=== PATIENT | male | born 1955 | race Caucasian/White ===

== ENCOUNTER 2017-03-11 10:55 | Inpatient (IN) | payer OTHER, MEDICARE ==
[~2017-03-11] VITALS: Ht 182.9 cm; Wt 76.3 kg
[2017-03-11] VITALS (28 sets, daily range): BP systolic 81–144; BP diastolic 36–76; PULSE 41–85; RESP 14–25; TEMP 91.6–98.4; O2SAT 8–100
[~2017-03-11 10:55] MED LIST: CARV12.5 PO; DIGO0.25 PO; HYDR-3580 PO; LISI40TA PO; [UNRECOGNIZED DRUG - CODE] XX
[2017-03-11] MEDS ORDERED: PROPOFOL 1000 MG/100 ML INJ 100 ML ONE (10:59)
[2017-03-11] MEDS ORDERED: SODIUM CHLORIDE 0.9% FLUSH 10 ML FLUSH IVF PRN ×2 (11:15)
[2017-03-11] MEDS ORDERED: ETOMIDATE 20 MG/10 ML VIAL IVP ONE (11:15)
[2017-03-11] MEDS ORDERED: SUCCINYLCHOLINE CHLORIDE 200 MG/10 ML VIAL IVP ONE (11:15)
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
[2017-03-11 11:30] LABS: AUTOMATED NEUTROPHIL # 3.5 TH/MM3 (1.8-7.7); BASOPHIL # 0.1 TH/MM3 (0-0.2); BASOPHIL % 0.9 % (0.0-2.0); EOSINOPHIL # 0.1 TH/MM3 (0-0.4); EOSINOPHIL % 1.3 % (0.0-4.0); HEMATOCRIT 50.7 % (39.0-51.0); HEMO FLAGS DIFF FINAL; LYMPH % 46.8 % (9.0-44.0); LYMPHOCYTE # 3.5 TH/MM3 (1.0-4.8); MEAN CELL VOLUME 96.1 FL (80.0-100.0); MEAN CORPUSCULAR HEMOGLOBIN 31.8 PG (27.0-34.0); MEAN CORPUSCULAR HGB CONC 33.1 % (32.0-36.0); PLATELET COUNT 199 TH/MM3 (150-450); RED BLOOD COUNT 5.27 MIL/MM3 (4.50-5.90); RED CELL DISTRIBUTION WIDTH 15.2 % (11.6-17.2); WHITE BLOOD COUNT 7.4 TH/MM3 (4.0-11.0)
[2017-03-11 11:34] LABS: BACTERIA, URINE RARE /hpf; BLOOD, URINE NEG (NEG); COMMENT (UR) CATH-CULTURE IND; CULTURE IF INDICATED CATH CULTURE IND; GLUCOSE,URINE NEG (NEG); HYALINE CAST, URINE 1 /lpf (RARE); KETONE, URINE NEG (NEG); MUCUS URINE FEW /lpf (OCC); NITRITE,URINE NEG (NEG); PH, URINE 5.5 (5.0-8.5); SQUAMOUS EPITHELIAL CELL URINE 1 /hpf (0-5); URINE COLOR YELLOW (YELLW/STRAW)
[2017-03-11 11:41] LABS: APTT (PATIENT) 31.6 SEC (24.3-30.1); PROTHROMBIN TIME - PATIENT 11.5 SEC (9.8-11.6)
[2017-03-11 11:44] LABS: AMPHETAMINE, URINE NEG (NEG)
[2017-03-11 11:45] LABS: BARBITURATES, URINE NEG (NEG); COCAINE, URINE NEG (NEG)
[2017-03-11] MEDS ORDERED: EPINEPHrine 2 MG/D5W 250 ML IV SCH ×2 (11:45)
[2017-03-11] MEDS ORDERED: NOREPINEPHRINE 4 MG/4 ML AMP ONE (11:48)
--- NOTE | 2017-03-11 11:54 | RADRPT ---
EXAM DATE/TIME: 03/11/2017 11:10 [facility] COMPARISON: CHEST SINGLE AP, June 30, 2015, 3:59. INDICATIONS : Post Intubation MEDICAL HISTORY : Unavailable SURGICAL HISTORY : Unavailable ENCOUNTER: Initial ACUITY: 1 day PAIN SCORE: Non-responsive. LOCATION: Bilateral chest FINDINGS: NG tube is present with tip in the stomach. ET tube is present with tip overlapping approximately 3 c m above the catracho. There is haziness of both lungs not present previously without focal consolidatio n. Heart and mediastinum are unremarkable for technique. CONCLUSION: Interval development of haziness of both lungs not present previously may represent pulmonary edema. Jacqueline Preston MD on March 11, 2017 at 11:51 Board Certified Radiologist. This report was verified electronically.
[2017-03-11 12:00] LABS: ALKALINE PHOSPHATASE 86 U/L (45-117); ALT (GPT) 164 U/L (12-78); ANION GAP 19 MEQ/L (5-15); AST (GOT) 179 U/L (15-37); BICARBONATE 14.9 MEQ/L (21.0-32.0); BLOOD UREA NITROGEN 11 MG/DL (7-18); CHLORIDE 105 MEQ/L (98-107); CREATINE KINASE 107 U/L (39-308); GLOMERULAR FILTRATION RATE 50 ML/MIN (>89); SODIUM (NA) 139 MEQ/L (136-145); TOTAL BILIRUBIN ADULT 0.8 MG/DL (0.2-1.0)
--- NOTE | 2017-03-11 12:10 | PD.PROCEDR ---
Central Line Procedure REASON FOR PROCEDURE Central venous access PROCEDURE PERFORMED Central line placement: Right internal Jugular CONSENT Informed consent for procedure was not obtained deemed emergent. ANESTHESIA Local injection of 1% Lidocaine DESCRIPTION OF THE PROCEDURE The patient was placed in supine, mild Trendelenburg position. The area was exposed and cleansed with ChloraPrep, times two. Large sterile drape was used to cover the patient, with the site exposed, under sterile conditions including cap, face mask, sterile gown, and sterile gloves. On single attempt, the introducer needle was inserted with negative pressure in syringe and venous flash was obtained. The guide wire was then advanced without any restriction and the needle was removed. The dilator was used without any complications. Using Seldinger technique the 7 Romanian catheter was advanced over the guide wire to a depth of 18 centimeters. The guide wire was removed. All ports were aspirated with dark venous blood return and flushed easily with sterile saline. All ports were capped. Antibiotic disc was placed around central line at puncture site. The central line was secured to the skin with two interrupted 2.0 silk sutures. The area was bandaged with sterile see-through central line bandage. RADIOLOGICAL DATA Ultrasound guidance was used to locate right internal jugular. Doppler/color flow was used to confirm venous flow. COMPLICATIONS: No apparent complications ESTIMATED BLOOD LOSS: Less than 1 cc. Kelley Spring MD Mar 11, 2017 12:10
--- NOTE | 2017-03-11 12:12 | PD.PROCEDR ---
Procedure Note Procedure Procedure: Arterial Line Placement Right radial arterial line Diagnosis: Cardiac arrest Indications: None Consent: Emergent Description of the Procedure: The right wrist was prepped and draped sterilely. 1% lidocaine was used for local anesthesia. The pulse was located and a needle was advanced into the artery. A 20 gauge, 1.34cm catheter was advanced into the artery using a modified Seldinger technique. The catheter was sutured to the skin and a sterile dressing was applied. The catheter was connected to a pressure transducer and an arterial waveform was noted. There were no immediate complications noted. There was minimal EBL. I personally performed the procedure. Kelley Spring MD Mar 11, 2017 12:12
[2017-03-11] MEDS: SODIUM CHLOR 0.9% 1000 ML INJ 1,000 ML IV SCH ×4 (12:13→20:02)
[2017-03-11] MEDS ORDERED: BISACODYL 10 MG SUPP RECTAL PRN (12:15)
[2017-03-11] MEDS ORDERED: POTASSIUM CHLOR 40 MEQ PREMIX 100 ML IV PRN (12:15)
[2017-03-11] MEDS ORDERED: SODIUM PHOSPHATE INJ 30 MMOL in SODIUM CHLOR 0.9% 250 ML INJ 240 ML IV PRN (12:15)
[2017-03-11] MEDS ORDERED: MAGNESIUM SULFATE INJ 2 GM in SODIUM CHLORIDE 0.9% INJ 96 ML IV PRN (12:15)
[2017-03-11] MEDS ORDERED: MISCELLANEOUS NURSING INFORMATION XX SCH (12:15)
[2017-03-11] MEDS ORDERED: POTASSIUM PHOSPHATE MONOBASIC 500 MG TAB PO PRN (12:15)
[2017-03-11] MEDS ORDERED: POTASSIUM CHLOR 20 MEQ PREMIX 100 ML IV PRN (12:15)
[2017-03-11] MEDS ORDERED: SODIUM CHLORIDE 0.9% FLUSH 10 ML FLUSH IV FLUSH PRN ×2 (12:15→16:45)
[2017-03-11] MEDS ORDERED: RESP: ALBUTEROL 2.5 MG/IPRATROPIUM 0.5 MG NEB (PRN) INH (12:15)
[2017-03-11] MEDS ORDERED: POTASSIUM PHOSPHATE INJ 30 MMOL in SODIUM CHLOR 0.9% 250 ML INJ 250 ML IV PRN (12:15)
[2017-03-11] MEDS ORDERED: MAGNESIUM OXIDE 400 MG TAB PO PRN (12:15)
[2017-03-11] MEDS ORDERED: SENNOSIDES SYRUP 8.8 MG/5 ML CUP G-TUBE PRN (12:15)
[2017-03-11] MEDS ORDERED: MAGNESIUM SULFATE INJ 4 GM in SODIUM CHLORIDE 0.9% INJ 92 ML IV PRN (12:15)
[2017-03-11] MEDS ORDERED: ACETAMINOPHEN 325 MG TAB PO PRN (12:15)
[2017-03-11] MEDS ORDERED: CHLORHEXIDINE GLUCONATE 2 % 1 PACK (2 CLOTHS) TOP PRN (12:15)
[2017-03-11] MEDS: DOCUSATE SODIUM 100 MG/10 ML UDC G-TUBE SCH ×2 (12:15→20:00)
[2017-03-11] MEDS ORDERED: POTASSIUM CHLORIDE 25 MEQ EFFERVESCENT TAB PO PRN (12:15)
[2017-03-11] MEDS ORDERED: POTASSIUM PHOSPHATE MONOBASIC 500 MG TAB PO/TUBE PRN (12:15)
--- NOTE | 2017-03-11 12:24 | RADRPT ---
EXAM DATE/TIME: 03/11/2017 11:55 [facility] COMPARISON: CHEST SINGLE AP, March 11, 2017, 11:10. INDICATIONS : Post central line placement, Stemi Alert MEDICAL HISTORY : Unobtainable SURGICAL HISTORY : Unobtainable ENCOUNTER: Subsequent ACUITY: 1 day PAIN SCORE: Non-responsive. LOCATION: Bilateral chest FINDINGS: ET tube, and NG tube have not changed. Right IJ line is present with tip overlapping the expected reg ion of the SVC. No definite pneumothorax is seen for technique. There is worsening airspace process i n the lungs since the prior examination bilaterally are worse on the right. CONCLUSION: Line placed and no pneumothorax, however air space process has progressed. Jacqueline Preston MD on March 11, 2017 at 12:21 Board Certified Radiologist. This report was verified electronically.
[2017-03-11] MEDS ORDERED: HEPARIN-NS/PF INJ 500 ML ONE (12:25)
[2017-03-11] MEDS ORDERED: HEPARIN SODIUM - IV 10,000 UNITS/10 ML VIAL ONE (12:27)
[2017-03-11] MEDS ORDERED: DEXTROSE 50% IN WATER 50 ML VIAL(D50) IV PUSH PRN (12:30)
[2017-03-11] MEDS ORDERED: GLUCAGON 1 MG/ML VIAL OTHER PRN (12:30)
[2017-03-11] MEDS ORDERED: TERBUTALINE INJ 1 MG/ML AMP SQ PRN (12:30)
[2017-03-11 12:42] LABS: BLOOD GAS BASE EXCESS -10.3 mmol/L (-2-2); BLOOD GAS HCO3 16 mmol/L (22-26); BLOOD GAS METHEMOGLOBIN 0.4 % (0-2); BLOOD GAS O2 HGB SATURATION 89 % (90-100); BLOOD GAS OXYGEN CONTENT 21.2 Vol % (12.0-20.0); BLOOD GAS PCO2 42 mmHg (38-42); BLOOD GAS PO2 118 mmHG (61-120); BLOOD GAS TOTAL HGB 16.9 G/DL (12.0-16.0); TEMP CORR TO 98.6
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
[2017-03-11 12:43] LABS: CRITICAL VALUE YES; OXYGEN DEVICE VENTILATOR
[2017-03-11 12:44] LABS: DRAW SITE LT RADIAL; FIO2 100 %; NUMBER OF ARTERIAL PUNCTURES 1; STAT YES; ULNAR PULSE PRESENT
[2017-03-11] MEDS: ARTIFICIAL TEARS OPTH SOLN 15 ML BTL EACH EYE SCH ×2 (13:00→18:00)
--- NOTE | 2017-03-11 13:08 | RADRPT ---
EXAM DATE/TIME: 03/11/2017 12:40 [facility] COMPARISON: No previous studies available for comparison. INDICATIONS : Unresponsive; post cardiac arrest. RADIATION DOSE: 49.19 CTDIvol (mGy) MEDICAL HISTORY : Hypertension. Cardiovascular disease Stroke. SURGICAL HISTORY : None. ENCOUNTER: Initial ACUITY: 1 day PAIN SCALE: Non-responsive LOCATION: cranial TECHNIQUE: Multiple contiguous axial images were obtained of the head. Using automated exposure control and adj ustment of the mA and/or kV according to patient size, radiation dose was kept as low as reasonably a chievable to obtain optimal diagnostic quality images. FINDINGS: There is no evidence for intracranial hemorrhage, mass effect, mass lesions, edema, or extra-axial fl uid collections. The visualized bony structures appear intact. The ventricles are normal size for t he patient's age. There are no signs of acute infarction for technique. There is encephalomalacia in the right posterior temporal occipital lobe probably due to old infarction. Slight periventricular w angelo matter changes are seen nonspecific mostly consistent with chronic small vessel ischemic changes . CONCLUSION: Chronic changes without any significant hemorrhage or mass effect. Jacqueline Preston MD on March 11, 2017 at 13:04 Board Certified Radiologist. This report was verified electronically.
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
[2017-03-11] MEDS ORDERED: FUROSEMIDE 20 MG/2 ML VIAL IV PUSH ONE (13:45)
--- NOTE | 2017-03-11 13:55 | MB ---
cc: SILVANO IBARRA M.D. DATE OF CONSULTATION: 03/11/2017. REASON FOR CONSULTATION: Emergency cardiac catheterization. HISTORY OF PRESENT ILLNESS: History is obtained from the patient's family and from Dr. Perry Palomares. The patient is currently intubated and sedated. He is a 61-year-old white male with a history of hypertension and CVA about five years ago who was brought to the hospital after a cardiac arrest. The patient's states he was at home in the driveway when he suddenly lost consciousness. Emergency services found him to be in ventricular fibrillation and administered four shocks with yarsani of a regular rhythm. For a brief time, he was able to state his name but he then shortly thereafter developed severe respiratory insufficiency necessitating intubation and placement on mechanical ventilation. The patient's states he has been acting "funny" all week although without any definite complaints of shortness of breath or chest pain. There is no history of syncope, dizziness, pedal edema. PAST MEDICAL HISTORY: As above. No other details currently available. MEDICATIONS AT HOME: None. ALLERGIES: Unknown FAMILY HISTORY: Noncontributory. SOCIAL HISTORY: The patient smokes about a pack of cigarettes per day. There is no history of alcohol abuse. REVIEW OF SYSTEMS: Currently unobtainable. PHYSICAL EXAMINATION: VITAL SIGNS: Blood pressure 94/53 with a pulse of 70, respirations 20. GENERAL: In general, he is a well-developed, well-nourished white male currently intubated and sedated. HEAD, EYES, EARS, NOSE, THROAT: On HEENT examination, jugular venous pressure is hard to assess but appears to be normal. Carotid pulses are 2+ bilaterally and without bruits. CHEST: Examination of the chest reveals clear lung rodriguez anteriorly. CARDIAC: On cardiac examination, he has a regular rhythm and rate without S3, S4 or murmur. ABDOMEN: On abdominal examination he has a soft abdomen. Bowel sounds are present. There is no definite hepatosplenomegaly. EXTREMITIES: Examination of extremities reveals no clubbing, cyanosis or edema. Peripheral pulses are normal. EKGS: The EKG shows possible accelerated atrioventricular rhythm, nonspecific intraventricular conduction delay, possible anterior infarct, age undetermined. LABORATORY DATA: Laboratory data includes normal CBC. Potassium 4.0, BUN 11, creatinine 1.44, AST 179, ALT 164. CK 107, troponin 0.14. INR 1.0. Negative toxicology screen. IMPRESSION: Ventricular fibrillation arrest out in the field in this 61-year-old white male with a history of hypertension and CVA about 5 years ago. I have been asked to consider the patient for emergency cardiac catheterization. Most likely he has sustained an acute coronary event. EKG is overall nondiagnostic due to a nonspecific intraventricular conduction delay. Initial troponin level is slightly abnormal. He is currently hypotensive necessitating pressor support. In light of his hemodynamic instability, abnormal cardiac enzymes, clinical presentation with ventricular fibrillation arrest, I would agree with the need for emergency cardiac catheterization and possible percutaneous coronary intervention. The nature of these procedures and potential risks have been outlined to the patient's family. They wish to proceed. RECOMMENDATIONS: Emergency cardiac catheterization a.s.a.p. MD PAPITO Kearns/LETITIA /1:32 PM /1:48 PM RASHEEDA
[2017-03-11] MEDS ORDERED: NOREPINEPHRINE-DEXTROSE DRIP 250 ML IV SCH (14:00)
[2017-03-11] MEDS ORDERED: TIROFIBAN INFUSION INJ 250 ML IV ONE (14:06)
[2017-03-11] MEDS ORDERED: EPINEPHrine (1:1000) INJ 2 MG in DEXTROSE 5% IN WATER INJ 248 ML IV SCH ×2 (14:30)
[2017-03-11] MEDS: PROPOFOL 1000 MG/100 ML IV SCH ×2 (14:37→17:58)
[2017-03-11] MEDS ORDERED: TICAGRELOR 90 MG TAB PO ONE (15:08)
[2017-03-11] MEDS ORDERED: MISC INFORMATION XX ONE (15:30)
[2017-03-11] MEDS ORDERED: SODIUM CHLORIDE 0.9% FLUSH 5 ML FLUSH IVF PRN (15:30)
--- NOTE | 2017-03-11 15:57 | EKG ---
Date Performed: 03/11/2017 Time Performed: 11:02:36 PTAGE: 61 years EKG: ATRIAL FIBRILLATION WITH CONTROLLED VENTRICULAR RESPONSE LEFT AXIS DEVIATION RIGHT BUNDLE B RANCH BLOCK CANNOT EXCLUDE ANTERIOR MYOCARDIAL INFARCTION OF UNDETERMINED AGE Since PREVIOUS TRACING , there is a rhythm change from Sinus rhythm to atrial fibrillation. There is more of a right bundle branch block pattern now of the QRS. Clinica l correlation recommended. PREVIOUS TRACIN06/30/2015 04.07 DOCTOR: Antonio Alva Interpretating Date/Time 03/13/2017 07:17:14
[2017-03-11] MEDS: INSULIN NovoLIN REGULAR SUPPLEMENTAL SCALE SQ SCH ×2 (16:00→20:01)
--- NOTE | 2017-03-11 16:04 | MA ---
cc: YOVANY IBARRA DATE: 03/11/2017 PROCEDURE Placement of a Quattro cooling catheter. PROCEDURE NOTES The patient had sustained a witnessed ventricular fibrillation arrest out in the field earlier today. It is decided to place a cooling catheter. Central venous access was obtained via the right femoral vein and a tract made using a dialator. Over the guidewire the Quattro cooling catheter was advanced. It was secured into place using 2-0 silk ties. CONCLUSION Successful placement of a Quattro cooling catheter via the right femoral vein. MD PAPITO Kearns/NAILA /3:19 PM /4:01 PM MTDD
--- NOTE | 2017-03-11 16:04 | MA ---
cc: FREDYOVANY DATE: 03/11/2017 PROCEDURE Difficult selective coronary angiography, angioplasty of the third diagonal, angioplasty and stent of the proximal LAD. PROCEDURE NOTES The patient was brought to the Cardiac Catheterization Laboratory under emergent conditions after sustaining a ventricular fibrillation arrest out in the field. The right groin was prepped and draped as per policy and anesthetized with 1% lidocaine. Arterial access was obtained via the right femoral artery and a 6-Indian sheath placed. Coronary arteriography was performed using 6-Indian Cesar left 5.0 and right progressive catheters. Left ventriculography was not done. The aortic valve was crossed briefly with the progressive right catheter demonstrating no transvalvular aortic gradient. Percutaneous coronary intervention was done as described below. There were no apparent immediate complications. HEMODYNAMIC DATA Aorta 116/68 with a mean of 88. Left ventricle 120 with an end diastolic pressure of 18. CORONARY ARTERIOGRAPHY The left main is a large-caliber vessel with 10% distal stenosis. The LAD is a large vessel giving rise to three diagonals, all arising from the proximal LAD. The first diagonal has minimal luminal irregularities. The second diagonal has up to 30% proximal stenosis. The third diagonal is diffusely diseased. There is up to 70% very proximal stenosis and at least 60% stenosis at its ostium. The midportion of the third diagonal has 50-60% stenosis. The LAD proximally, right after the takeoff the third diagonal, has 85% tubular stenosis. The mid to distal LAD is normal. The left circumflex is a medium-sized vessel giving rise to a large branching obtuse marginal. There are minimal luminal irregularities in the proximal left circumflex and in the proximal obtuse marginal. The right coronary artery is a very large dominant vessel with up to 40% proximal stenosis. The mid to distal vessel has minimal luminal irregularities. LEFT VENTRICULOGRAPHY Not done. PERCUTANEOUS CORONARY INTERVENTION DESCRIPTION Aggrastat was started as per protocol. Adequate heparin was given during the procedure to achieve an ACT greater than 250 seconds. Using a 6-Indian XB 4.5 guiding catheter the ostium of the left main was re-engaged. Using a 0.014 [place] guidewire the proximal LAD disease was crossed without difficulty and the tip of the wire positioned distally. A number of pre-dilations were done using a 3.0-mm Euphora balloon catheter. At this point there is a very small non-flow limiting dissection at the lesion. It was decided to try to treat the third diagonal disease near the ostium and then to eventually place an LAD stent overlapping the origin of the third diagonal. A [place] wire was positioned in the third diagonal without difficulty. Multiple balloon inflations were done in the diagonal initially using a 2.25-mm Euphora balloon catheter and then eventually a noncompliant 2.5-mm Euphora. We attempted to advance both a 2.5-mm Resolute and 2.5 mm Promus stent into the very proximal portion of the diagonal without success. There appears to be focal calcification near the ostium of the diagonal preventing passage of the stent. We also tried peyman wiring using a Balance Middle Weight guidewire, again without success. Additional balloon inflations were done at the ostium of the third diagonal using a fresh 2.5 mm noncompliant Euphora. We were once again unable to advance a stent into the diagonal. At this point we decided to stent across the origin of the third diagonal encompassing the proximal LAD using a 3.5 x 22-mm Resolute stent which was deployed at 12 atmospheres for 30 seconds. Final angiography shows reduction of the proximal LAD lesion to 0% residual with no evidence for dissection or distal embolization. The ostial to proximal portion of the third diagonal has persistent disease up to 60% severity. There were no apparent immediate complications. The patient was intubated and sedated throughout the case. CONCLUSIONS 1. Severe proximal LAD and severe ostial to proximal third diagonal disease, now status post stent of the proximal LAD and angioplasty of the third diagonal with unsuccessful stenting of the third diagonal. 2. Mild to moderate proximal right coronary disease. MD PAPITO Kearns/BJIra /3:11 PM /3:38 PM RASHEEDA
[2017-03-11] MEDS: CEFEPIME INJ 2,000 MG in SODIUM CHLORIDE 0.9% INJ 100 ML IV SCH ×2 (16:15→21:15)
[2017-03-11] MEDS: AZITHROMYCIN INJ 250 MG in SODIUM CHLOR 0.9% 250 ML INJ 250 ML IV SCH (16:16)
[2017-03-11 16:25] LABS: INDIRECT BILIRUBIN 0.5 MG/DL (0.0-0.8); MAGNESIUM 2.6 MG/DL (1.5-2.5); TOTAL BILIRUBIN ADULT 0.8 MG/DL (0.2-1.0)
[2017-03-11 16:37] LABS: BLOOD GAS BASE EXCESS -3.3 mmol/L (-2-2); BLOOD GAS CARBOXYHEMOGLOBIN 3.8 % (0-4); BLOOD GAS HCO3 21 mmol/L (22-26); BLOOD GAS METHEMOGLOBIN 0.9 % (0-2); BLOOD GAS O2 HGB SATURATION 94 % (90-100); BLOOD GAS OXYGEN CONTENT 22.4 Vol % (12.0-20.0); BLOOD GAS PCO2 37 mmHg (38-42); BLOOD GAS PO2 137 mmHg (61-120); BLOOD GAS TOTAL HGB 16.7 G/DL (12.0-16.0); CRITICAL VALUE NO; TEMP CORR TO 98.6
[2017-03-11 16:38] LABS: DRAW SITE ART LINE; FIO2 50 %; OXYGEN DEVICE VENTILATOR; STAT NO; VENT SETTINGS A/C14/550/+8PEEP
[2017-03-11] MEDS: RESP: ALBUTEROL 2.5 MG/IPRATROPIUM 0.5 MG NEB (SCH) INH ×2 (16:40→19:22)
[2017-03-11] MEDS: NS 1000 ML IV SCH ×2 (16:45→17:15)
[2017-03-11] MEDS ORDERED: MIDAZOLAM HCL 2 MG/2 ML VIAL IV ONE (16:45)
[2017-03-11] MEDS ORDERED: LORazepam 2 MG/ML VIAL IV PRN (16:45)
[2017-03-11] MEDS ORDERED: Mix all IV Meds in NS IV SCH (16:45)
[2017-03-11] MEDS ORDERED: ARTIFICIAL TEARS OPTH OINT 3.5 APPLIC/3.5 GM TUBO EACH EYE PRN (16:45)
[2017-03-11] MEDS ORDERED: MEPERIDINE HCL 25 MG/ML VIAL IV PUSH PRN (16:45)
[2017-03-11] MEDS ORDERED: CISATRACURIUM BESYLATE 10 MG/5 ML VIAL IV PUSH ONE (16:45)
[2017-03-11] MEDS ORDERED: PROPOFOL 1000 MG/100 ML IV SCH (16:45)
[2017-03-11 16:57] LABS: BASOPHIL % 0.1 % (0.0-2.0); EOSINOPHIL % 0.1 % (0.0-4.0); HEMATOCRIT 48.9 % (39.0-51.0); HEMO FLAGS DIFF FINAL; LYMPH % 4.9 % (9.0-44.0); LYMPHOCYTE # 0.9 TH/MM3 (1.0-4.8); MEAN CELL VOLUME 93.3 FL (80.0-100.0); MEAN CORPUSCULAR HEMOGLOBIN 30.7 PG (27.0-34.0); MEAN CORPUSCULAR HGB CONC 32.9 % (32.0-36.0); MONO % 8.8 % (0.0-8.0); NEUT % 86.1 % (16.0-70.0); PLATELET COUNT 262 TH/MM3 (150-450); RED BLOOD COUNT 5.24 MIL/MM3 (4.50-5.90); RED CELL DISTRIBUTION WIDTH 14.4 % (11.6-17.2); WHITE BLOOD COUNT 18.5 TH/MM3 (4.0-11.0)
[2017-03-11] MEDS ORDERED: NOREPINEPHRINE 4 MG/250 ML NS IV SCH ×2 (17:00)
[2017-03-11] MEDS ORDERED: FENTANYL DRIP IV SCH (17:00)
[2017-03-11 17:02] LABS: BLOOD, URINE SMALL (NEG); GLUCOSE,URINE NEG (NEG); KETONE, URINE TRACE mg/dL (NEG); NITRITE,URINE NEG (NEG); PH, URINE 5.5 (5.0-8.5); SQUAMOUS EPITHELIAL CELL URINE <1 /hpf (0-5); URINE COLOR LIGHT-YELLOW (YELLW/STRAW)
[2017-03-11 17:08] LABS: INTERNATIONAL NORMALIZED RATIO 1.1 RATIO; PROTHROMBIN TIME - PATIENT 12.4 SEC (9.8-11.6)
[2017-03-11 17:09] LABS: AMPHETAMINE, URINE NEG (NEG); BARBITURATES, URINE NEG (NEG); COCAINE, URINE NEG (NEG)
[2017-03-11 17:28] LABS: APTT (PATIENT) 127.9 SEC (24.3-30.1)
[2017-03-11 17:38] LABS: BICARBONATE 22.5 MEQ/L (21.0-32.0); POTASSIUM 4.4 MEQ/L (3.5-5.1)
[2017-03-11] MEDS ORDERED: CISATRACURIUM BESYLATE 20 MG/10 ML VIAL IV PUSH ONE (17:45)
[2017-03-11 17:50] LABS: CALCIUM-PROTEIN CORRECTED 8.1 MG/DL (8.5-10.1)
[2017-03-11] MEDS: MIDAZOLAM 100 MG/ML INJ 100 ML IV SCH ×2 (17:59→23:50)
[2017-03-11] MEDS: CISATRACURIUM 100 MG/NS 250 ML IV SCH ×4 (17:59→23:47)
[2017-03-11] MEDS: TIROFIBAN INFUSION INJ 250 ML IV SCH ×2 (18:00→21:15)
[2017-03-11 18:18] LABS: CKMB 30.3 NG/ML (0.5-3.6)
[2017-03-11] MEDS: SODIUM CHLORIDE 0.9% FLUSH 5 ML FLUSH IVF SCH (20:01)
[2017-03-11] MEDS: TICAGRELOR 90 MG TAB PO SCH (20:01)
[2017-03-11] MEDS: CHLORHEXIDINE GLUCONATE 2 % 1 PACK (2 CLOTHS) TOP SCH (20:02)
[2017-03-11] MEDS ORDERED: SODIUM CHLORIDE 0.9% FLUSH 10 ML FLUSH IV FLUSH SCH (21:00)
[2017-03-11] MEDS: FAMOTIDINE 20 MG/2 ML VIAL IV PUSH SCH (21:16)
[2017-03-11 21:20] LABS: BLOOD GAS BASE EXCESS -5.6 mmol/L (-2-2); BLOOD GAS CARBOXYHEMOGLOBIN 2.7 % (0-4); BLOOD GAS HCO3 19 mmol/L (22-26); BLOOD GAS METHEMOGLOBIN 1.1 % (0-2); BLOOD GAS O2 HGB SATURATION 95 % (90-100); BLOOD GAS OXYGEN CONTENT 21.6 Vol % (12.0-20.0); BLOOD GAS PCO2 36 mmHg (38-42); BLOOD GAS PO2 133 mmHg (61-120); BLOOD GAS TOTAL HGB 16.1 G/DL (12.0-16.0); CRITICAL VALUE NO; DRAW SITE ART LINE; FIO2 40 %; NUMBER OF ARTERIAL PUNCTURES 0; OXYGEN DEVICE VENTILATOR; STAT YES; TEMP CORR TO 98.6; VENT SETTINGS AC14/550 8 PEEP
[2017-03-11 22:46] LABS: BICARBONATE 22.1 MEQ/L (21.0-32.0); POTASSIUM 3.2 MEQ/L (3.5-5.1)
[2017-03-11] MEDS: POTASSIUM CHLOR 40 MEQ PREMIX 100 ML IV PRN ×2 (23:00→23:01)
[2017-03-11 23:11] LABS: CALCIUM-PROTEIN CORRECTED 7.8 MG/DL (8.5-10.1)
[2017-03-11] MEDS: VASOPRESSIN INJ 40 UNITS in SODIUM CHLORIDE 0.9% INJ 98 ML IV SCH (23:47)
[2017-03-12] VITALS (23 sets, daily range): BP systolic 106–148; BP diastolic 59–77; PULSE 38–49; RESP 14; TEMP 91.4–91.7; O2SAT 100
[2017-03-12] MEDS: RESP: ALBUTEROL 2.5 MG/IPRATROPIUM 0.5 MG NEB (SCH) INH ×4 (03:15→20:19)
[2017-03-12] MEDS: CEFEPIME INJ 2,000 MG in SODIUM CHLORIDE 0.9% INJ 100 ML IV SCH ×3 (04:45→21:55)
[2017-03-12 05:01] LABS: APTT (PATIENT) 32.6 SEC (24.3-30.1)
[2017-03-12 05:04] LABS: AUTOMATED NEUTROPHIL # 9.9 TH/MM3 (1.8-7.7); BASOPHIL % 0.3 % (0.0-2.0); EOSINOPHIL # 0.1 TH/MM3 (0-0.4); EOSINOPHIL % 0.7 % (0.0-4.0); HEMATOCRIT 46.7 % (39.0-51.0); HEMO FLAGS DIFF FINAL; LYMPH % 11.9 % (9.0-44.0); LYMPHOCYTE # 1.5 TH/MM3 (1.0-4.8); MEAN CELL VOLUME 92.2 FL (80.0-100.0); MEAN CORPUSCULAR HEMOGLOBIN 30.6 PG (27.0-34.0); MEAN CORPUSCULAR HGB CONC 33.2 % (32.0-36.0); MONO % 9.1 % (0.0-8.0); PLATELET COUNT 177 TH/MM3 (150-450); RED BLOOD COUNT 5.06 MIL/MM3 (4.50-5.90); RED CELL DISTRIBUTION WIDTH 14.3 % (11.6-17.2); WHITE BLOOD COUNT 12.7 TH/MM3 (4.0-11.0)
[2017-03-12 05:30] LABS: BICARBONATE 21.7 MEQ/L (21.0-32.0); HDL CHOLESTEROL 28.4 MG/DL (40.0-60.0); POTASSIUM 4.5 MEQ/L (3.5-5.1)
[2017-03-12] MEDS: INSULIN NovoLIN REGULAR SUPPLEMENTAL SCALE SQ SCH ×4 (05:46→21:00)
[2017-03-12 06:03] LABS: CALCIUM-PROTEIN CORRECTED 7.9 MG/DL (8.5-10.1); CKMB 48.4 NG/ML (0.5-3.6)
[2017-03-12] MEDS: FAMOTIDINE 20 MG/2 ML VIAL IV PUSH SCH ×2 (08:25→21:56)
[2017-03-12] MEDS: ASPIRIN 81 MG CHEW TAB PO SCH (08:25)
[2017-03-12] MEDS: TICAGRELOR 90 MG TAB PO SCH ×2 (08:25→21:56)
[2017-03-12] MEDS: DOCUSATE SODIUM 100 MG/10 ML UDC G-TUBE SCH ×2 (08:26→21:55)
[2017-03-12] MEDS: SODIUM CHLORIDE 0.9% FLUSH 5 ML FLUSH IVF SCH ×2 (08:27→21:00)
--- NOTE | 2017-03-12 08:37 | PD.CARD.PN ---
Subjective Subjective Remarks Currently being cooled; s/p PCI to LAD Objective Medications Administered Medications Medications (Trade) Dose Ordered Sig/Dee Route PRN Reason Start Time Stop Time Status Last Admin Dose Admin Famotidine (Pepcid Inj) 20 mg Q12HR IV PUSH 03/11/17 21:00 03/12/17 08:25 Docusate Sodium (Colace Liq) 100 mg Q12HR G-TUBE 03/11/17 12:15 03/12/17 08:26 Miscellaneous Information 1 [id number] XX 03/11/17 12:15 03/11/17 16:18 Chlorhexidine Gluconate 3 pack 3 pack Taper DAILY@04 TOP 03/12/17 04:00 03/08/18 03:59 03/11/17 20:02 Potassium Chloride 100 ml @ 50 mls/hr Q2H PRN IV For Potassium 2.8 - 3.2 mEq/L 03/11/17 12:15 03/11/17 23:01 Epinephrine HCl 2 mg/Dextrose 250 ml @ 22.5 mls/hr TITRATE IV 03/11/17 14:30 03/11/17 14:38 Azithromycin 250 mg/Sodium Chloride 250 ml @ 250 mls/hr Q24H IV 03/11/17 14:00 03/11/17 16:16 Cefepime HCl 2000 mg/Sodium Chloride 100 ml @ 200 mls/hr Q8H IV 03/11/17 15:00 03/12/17 04:45 Propofol (Diprivan 1000 Mg/100ml Inj) 100 ml @ 0 mls/hr TITRATE IV 03/11/17 14:00 03/11/17 17:58 IV Flush (NS Flush) 2 ml BID IVF 03/11/17 21:00 03/12/17 08:27 Aspirin (Aspirin Chew) 81 mg DAILY PO 03/12/17 09:00 03/12/17 08:25 Ticagrelor 90 mg 90 mg BID PO 03/11/17 21:00 03/12/17 08:25 Tirofiban/Sodium Chloride 250 ml @ 15.3 mls/hr [id number] IV 03/11/17 18:00 03/12/17 17:59 03/11/17 21:15 Midazolam HCl 100 ml @ 0 mls/hr TITRATE IV 03/11/17 16:45 03/11/17 23:50 Cisatracurium Besylate 100 mg/ Sodium Chloride 250 ml @ 0 mls/hr TITRATE IV 03/11/17 16:45 03/11/17 23:47 Vasopressin/ Sodium Chloride (Pitressin Inj/ NS Inj) 100 ml @ 0 mls/hr TITRATE IV 03/11/17 17:45 03/11/17 23:47 Vital Signs / I&O Vital Signs Date Time Temp Pulse Resp B/P Pulse Ox O2 Delivery O2 Flow Rate FiO2 03/12/17 06:00 43 03/12/17 05:00 43 03/12/17 04:30 100 40 03/12/17 04:00 41 03/12/17 04:00 40 03/12/17 04:00 91.7 41 14 131/68 100 127/61 03/12/17 03:00 91.6 42 14 119/59 100 03/12/17 02:00 43 03/12/17 02:00 91.6 42 14 123/67 100 03/12/17 01:10 100 40 03/12/17 01:00 91.6 41 14 123/63 100 03/12/17 00:00 40 03/12/17 00:00 43 03/12/17 00:00 91.6 41 14 124/67 100 119/59 03/11/17 23:00 91.6 41 14 125/60 100 03/11/17 22:09 100 40 03/11/17 22:00 91.6 43 14 131/58 100 03/11/17 22:00 43 03/11/17 21:00 91.6 48 14 144/74 100 03/11/17 20:00 40 03/11/17 20:00 100 03/11/17 20:00 47 03/11/17 20:00 96.1 49 14 116/58 100 117/58 03/11/17 19:22 100 40 03/11/17 18:30 52 03/11/17 18:30 40 03/11/17 18:30 97.4 52 14 128/76 100 128/67 03/11/17 15:49 99 50 03/11/17 13:09 69 20 98/67 97 Ventilator 03/11/17 13:00 100 100 03/11/17 12:45 66 24 100/57 99 Ventilator 100 88/46 03/11/17 12:30 70 20 95/64 100 Ventilator 100 110/58 03/11/17 12:20 66 20 81/52 98 Ventilator 100 88/38 03/11/17 12:15 72 20 90/54 99 Ventilator 100 92/44 03/11/17 12:10 97.5 70 22 86/53 99 Ventilator 100 92/42 03/11/17 12:05 97.5 72 20 89/54 98 Ventilator 100 88/36 03/11/17 12:00 97.9 74 24 89/55 99 Ventilator 100 92/42 03/11/17 11:55 74 22 92/56 98 Ventilator 100 03/11/17 11:50 98.2 74 20 92/54 98 Ventilator 100 03/11/17 11:45 72 23 97/56 98 Ventilator 100 03/11/17 11:43 98.4 71 20 94/53 97 Ventilator 100 03/11/17 11:40 62 24 85/56 97 Ventilator 100 03/11/17 11:30 64 19 81/54 97 Ventilator 100 03/11/17 11:25 62 20 85/59 8 Ventilator 100 03/11/17 11:20 96 100 03/11/17 11:20 59 22 102/67 94 Ventilator 100 03/11/17 11:15 66 25 107/67 92 Ventilator 100 03/11/17 11:00 100 03/11/17 11:00 76 22 104/66 84 Ventilator 100 03/11/17 10:57 85 22 104/66 82 03/11/17 10:57 22 81 Non-Rebreather 15 I/O 03/11/17 03/11/17 03/11/17 03/12/17 03/12/17 03/12/17 07:00 15:00 23:00 07:00 15:00 23:00 Intake Total 2933 ml 1385 ml Output Total 2890 ml 955 ml Balance 43 ml 430 ml Intake IV Total 2933 ml 1385 ml Output Urine Total 2890 ml 955 ml Physical Exam GENERAL: Intubated, sedated CARDIOVASCULAR: Bradycardic (cooled); no murmurs appreciated RESPIRATORY: Clear to auscultation. Breath sounds equal bilaterally. No wheezes , rales, or rhonchi. GASTROINTESTINAL: Abdomen soft, non-tender, nondistended. Normal active bowel sounds MUSCULOSKELETAL: Extremities without clubbing, cyanosis, or edema. NEURO: Intubated, sedated. Laboratory Laboratory Tests Test 03/11/17 03/11/17 03/11/17 03/11/17 11:10 11:30 15:45 16:25 White Blood Count 7.4 TH/MM3 18.5 TH/MM3 Red Blood Count 5.27 MIL/MM3 5.24 MIL/MM3 Hemoglobin 16.8 GM/DL 16.1 GM/DL Hematocrit 50.7 % 48.9 % Mean Corpuscular Volume 96.1 FL 93.3 FL Mean Corpuscular Hemoglobin 31.8 PG 30.7 PG Mean Corpuscular Hemoglobin 33.1 % 32.9 % Concent Red Cell Distribution Width 15.2 % 14.4 % Platelet Count 199 TH/MM3 262 TH/MM3 Mean Platelet Volume 7.7 FL 7.5 FL Neutrophils (%) (Auto) 47.0 % 86.1 % Lymphocytes (%) (Auto) 46.8 % 4.9 % Monocytes (%) (Auto) 4.0 % 8.8 % Eosinophils (%) (Auto) 1.3 % 0.1 % Basophils (%) (Auto) 0.9 % 0.1 % Neutrophils # (Auto) 3.5 TH/MM3 16.0 TH/MM3 Lymphocytes # (Auto) 3.5 TH/MM3 0.9 TH/MM3 Monocytes # (Auto) 0.3 TH/MM3 1.6 TH/MM3 Eosinophils # (Auto) 0.1 TH/MM3 0.0 TH/MM3 Basophils # (Auto) 0.1 TH/MM3 0.0 TH/MM3 CBC Comment DIFF FINAL DIFF FINAL Differential Comment Prothrombin Time 11.5 SEC 12.4 SEC Prothromb Time International 1.0 RATIO 1.1 RATIO Ratio Activated Partial 31.6 SEC 127.9 SEC Thromboplast Time Urine Color YELLOW LIGHT-YELLOW Urine Turbidity CLEAR CLEAR Urine pH 5.5 5.5 Urine Specific Wells 1.022 1.050 Urine Protein TRACE mg/dL TRACE mg/dL Urine Glucose (UA) NEG mg/dL NEG mg/dL Urine Ketones NEG mg/dL TRACE mg/dL Urine Occult Blood NEG SMALL Urine Nitrite NEG NEG Urine Bilirubin NEG NEG Urine Urobilinogen 2.0 MG/DL LESS THAN 2.0 MG/DL Urine Leukocyte Esterase NEG NEG Urine RBC LESS THAN 1 6 /hpf /hpf Urine WBC 1 /hpf 3 /hpf Urine Squamous Epithelial 1 /hpf <1 /hpf Cells Urine Bacteria RARE /hpf Urine Hyaline Casts 1 /lpf Urine Mucus FEW /lpf Microscopic Urinalysis Comment CATH-CULTURE IND Sodium Level 139 MEQ/L 139 MEQ/L Potassium Level 4.0 MEQ/L 4.4 MEQ/L Chloride Level 105 MEQ/L 109 MEQ/L Carbon Dioxide Level 14.9 MEQ/L 22.5 MEQ/L Anion Gap 19 MEQ/L 8 MEQ/L Blood Urea Nitrogen 11 MG/DL 15 MG/DL Creatinine 1.44 MG/DL 1.19 MG/DL Estimat Glomerular Filtration 50 ML/MIN 62 ML/MIN Rate Random Glucose 255 MG/DL 186 MG/DL Calcium Level 7.9 MG/DL 7.4 MG/DL Total Bilirubin 0.8 MG/DL 0.8 MG/DL Aspartate Amino Transf 179 U/L 182 U/L (AST/SGOT) Alanine Aminotransferase 164 U/L 157 U/L (ALT/SGPT) Alkaline Phosphatase 86 U/L 84 U/L Total Creatine Kinase 107 U/L 491 U/L Troponin I 0.14 NG/ML 6.62 NG/ML Total Protein 6.2 GM/DL 5.9 GM/DL Albumin 3.0 GM/DL 3.1 GM/DL Urine Opiates Screen NEG NEG Urine Barbiturates Screen NEG NEG Urine Amphetamines Screen NEG NEG Urine Benzodiazepines Screen NEG NEG Urine Cocaine Screen NEG NEG Urine Cannabinoids Screen NEG NEG Ethyl Alcohol Level LESS THAN 3 MG/DL Blood Gas Puncture Site LT RADIAL ART LINE Blood Gas Patient Temperature 98.6 98.6 Blood Gas HCO3 16 mmol/L 21 mmol/L Blood Gas Base Excess -10.3 mmol/L -3.3 mmol/L Blood Gas Oxygen Saturation 89 % 94 % Arterial Blood pH 7.21 7.37 Arterial Blood Partial 42 mmHg 37 mmHg Pressure CO2 Arterial Blood Partial 118 mmHG 137 mmHg Pressure O2 Arterial Blood Oxygen Content 21.2 Vol % 22.4 Vol % Arterial Blood 9.0 % 3.8 % Carboxyhemoglobin Arterial Blood Methemoglobin 0.4 % 0.9 % Blood Gas Hemoglobin 16.9 G/DL 16.7 G/DL Oxygen Delivery Device VENTILATOR VENTILATOR Blood Gas Ventilator Setting A/C14/550/+8PEEP Blood Gas Inspired Oxygen 100 % 50 % Nasal Screen MRSA (PCR) NEGATIVE Lactic Acid Level 0.9 mmol/L Protein Corrected Calcium 8.1 MG/DL Phosphorus Level 2.9 MG/DL Magnesium Level 2.6 MG/DL Direct Bilirubin 0.3 MG/DL Indirect Bilirubin 0.5 MG/DL Creatine Kinase MB 30.3 NG/ML Creatine Kinase MB % 6.2 % Blood Type O POSITIVE Antibody Screen NEGATIVE Blood Bank Comment Test 03/11/17 03/11/17 03/12/17 21:10 21:53 03:57 Blood Gas Puncture Site ART LINE Blood Gas Patient Temperature 98.6 Blood Gas HCO3 19 mmol/L Blood Gas Base Excess -5.6 mmol/L Blood Gas Oxygen Saturation 95 % Arterial Blood pH 7.35 Arterial Blood Partial 36 mmHg Pressure CO2 Arterial Blood Partial 133 mmHg Pressure O2 Arterial Blood Oxygen Content 21.6 Vol % Arterial Blood 2.7 % Carboxyhemoglobin Arterial Blood Methemoglobin 1.1 % Blood Gas Hemoglobin 16.1 G/DL Oxygen Delivery Device VENTILATOR Blood Gas Ventilator Setting AC14/550 8 PEEP Blood Gas Inspired Oxygen 40 % Sodium Level 142 MEQ/L 142 MEQ/L Potassium Level 3.2 MEQ/L 4.5 MEQ/L Chloride Level 111 MEQ/L 113 MEQ/L Carbon Dioxide Level 22.1 MEQ/L 21.7 MEQ/L Anion Gap 9 MEQ/L 7 MEQ/L Blood Urea Nitrogen 14 MG/DL 13 MG/DL Creatinine 0.98 MG/DL 0.83 MG/DL Estimat Glomerular Filtration 77 ML/MIN 94 ML/MIN Rate Random Glucose 135 MG/DL 128 MG/DL Calcium Level 7.0 MG/DL 7.1 MG/DL Protein Corrected Calcium 7.8 MG/DL 7.9 MG/DL Total Protein 5.5 GM/DL 5.5 GM/DL White Blood Count 12.7 TH/MM3 Red Blood Count 5.06 MIL/MM3 Hemoglobin 15.5 GM/DL Hematocrit 46.7 % Mean Corpuscular Volume 92.2 FL Mean Corpuscular Hemoglobin 30.6 PG Mean Corpuscular Hemoglobin 33.2 % Concent Red Cell Distribution Width 14.3 % Platelet Count 177 TH/MM3 Mean Platelet Volume 7.3 FL Neutrophils (%) (Auto) 78.0 % Lymphocytes (%) (Auto) 11.9 % Monocytes (%) (Auto) 9.1 % Eosinophils (%) (Auto) 0.7 % Basophils (%) (Auto) 0.3 % Neutrophils # (Auto) 9.9 TH/MM3 Lymphocytes # (Auto) 1.5 TH/MM3 Monocytes # (Auto) 1.2 TH/MM3 Eosinophils # (Auto) 0.1 TH/MM3 Basophils # (Auto) 0.0 TH/MM3 CBC Comment DIFF FINAL Differential Comment Activated Partial 32.6 SEC Thromboplast Time Magnesium Level 2.0 MG/DL Total Creatine Kinase 756 U/L Creatine Kinase MB 48.4 NG/ML Creatine Kinase MB % 6.4 % Triglycerides Level 101 MG/DL Cholesterol Level 127 MG/DL LDL Cholesterol 78 MG/DL HDL Cholesterol 28.4 MG/DL Cholesterol/HDL Ratio 4.47 RATIO Imaging Last Impressions Head CT 03/11/17 1129 Signed Impressions: Service Date/Time: Saturday, March 11, 2017 12:40 - CONCLUSION: Chronic changes without any significant hemorrhage or mass effect. Jacqueline Preston MD Chest X-Ray 03/11/17 1104 Signed Impressions: Service Date/Time: Saturday, March 11, 2017 11:10 - CONCLUSION: Interval development of haziness of both lungs not present previously may represent pulmonary edema. Jacqueline Preston MD Assessment and Plan Problem List: (1) Cardiac arrest Assessment and Plan: currently being cooled, mgt per [facility] protocol (2) CAD (coronary artery disease) Assessment and Plan: now s/p PCI to LAD, cont asa/brillinta; not on bb due to bradycardia, statin held w/ LFT increase but can likely be added at a later date. (3) VF (ventricular fibrillation) Assessment and Plan: likely due to LAD ischemia, now s/p PCI, no further ventricular arrhythmias. Kamar Weiner MD Mar 12, 2017 08:37
[2017-03-12] MEDS: ARTIFICIAL TEARS OPTH SOLN 15 ML BTL EACH EYE SCH ×3 (09:51→17:40)
[2017-03-12] MEDS: SODIUM CHLOR 0.9% 1000 ML INJ 1,000 ML IV SCH ×2 (09:55→16:33)
[2017-03-12 10:40] LABS: BLOOD GAS BASE EXCESS -6.8 mmol/L (-2-2); BLOOD GAS CARBOXYHEMOGLOBIN 1.8 % (0-4); BLOOD GAS HCO3 18 mmol/L (22-26); BLOOD GAS METHEMOGLOBIN 0.9 % (0-2); BLOOD GAS O2 HGB SATURATION 95 % (90-100); BLOOD GAS OXYGEN CONTENT 19.9 Vol % (12.0-20.0); BLOOD GAS PCO2 35 mmHg (38-42); BLOOD GAS PO2 108 mmHg (61-120); BLOOD GAS TOTAL HGB 14.8 G/DL (12.0-16.0); TEMP CORR TO 98.6
[2017-03-12 10:41] LABS: CRITICAL VALUE NO; FIO2 35 %; OXYGEN DEVICE VENTILATOR
[2017-03-12 10:42] LABS: DRAW SITE ART LINE; STAT NO
[2017-03-12 10:43] LABS: BICARBONATE 21.5 MEQ/L (21.0-32.0); POTASSIUM 4.1 MEQ/L (3.5-5.1)
[2017-03-12] MEDS: AZITHROMYCIN INJ 250 MG in SODIUM CHLOR 0.9% 250 ML INJ 250 ML IV SCH (13:04)
[2017-03-12] MEDS: CISATRACURIUM 100 MG/NS 250 ML IV SCH ×4 (13:08→22:38)
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
--- NOTE | 2017-03-12 16:14 | EKG ---
Date Performed: 03/11/2017 Time Performed: 12:16:50 PTAGE: 61 years EKG: Sinus rhythm MARKED LEFT AXIS DEVIATION LEFT BUNDLE BRANCH BLOCK When compared to previous tracing, previous trac ing showed right Bundle branch block, this tracing shows left bundle branch block With left axis clare ation. Rhythm has change from atrial fibrillation to sinus rhythm. ABNORMAL ECG PREVIOUS TRACING : 03/11/2017 11.02 DOCTOR: Antonio Alva Interpretating Date/Time 03/12/2017 16:12:50
[2017-03-12] MEDS: TIROFIBAN INFUSION INJ 250 ML IV SCH (16:33)
[2017-03-12 17:08] LABS: BICARBONATE 23.1 MEQ/L (21.0-32.0)
[2017-03-12 17:24] LABS: CALCIUM-PROTEIN CORRECTED 8.2 MG/DL (8.5-10.1)
[2017-03-12] MEDS: VASOPRESSIN INJ 40 UNITS in SODIUM CHLORIDE 0.9% INJ 98 ML IV SCH (18:41)
[2017-03-12] MEDS: SODIUM CHLORIDE 0.9% FLUSH 10 ML FLUSH IV FLUSH PRN (21:56)
[2017-03-12] MEDS ORDERED: ARTIFICIAL TEARS OPTH OINT 3.5 APPLIC/3.5 GM TUBO EACH EYE PRN (23:00)
[2017-03-12] MEDS ORDERED: EPINEPHrine (1:1000) INJ 2 MG in SODIUM CHLOR 0.9% 250 ML INJ 248 ML IV SCH (23:15)
[2017-03-13] VITALS (19 sets, daily range): BP systolic 106–175; BP diastolic 53–78; PULSE 45–92; RESP 14; TEMP 91.6–100.9; O2SAT 94–100
[2017-03-13] MEDS: RESP: ALBUTEROL 2.5 MG/IPRATROPIUM 0.5 MG NEB (SCH) INH ×4 (03:07→19:31)
[2017-03-13 03:10] LABS: AUTOMATED NEUTROPHIL # 8.2 TH/MM3 (1.8-7.7); BASOPHIL % 0.4 % (0.0-2.0); EOSINOPHIL # 0.1 TH/MM3 (0-0.4); EOSINOPHIL % 0.8 % (0.0-4.0); HEMATOCRIT 42.5 % (39.0-51.0); HEMO FLAGS DIFF FINAL; LYMPH % 8.8 % (9.0-44.0); LYMPHOCYTE # 0.8 TH/MM3 (1.0-4.8); MEAN CORPUSCULAR HGB CONC 35.2 % (32.0-36.0); MONO % 4.6 % (0.0-8.0); NEUT % 85.4 % (16.0-70.0); PLATELET COUNT 144 TH/MM3 (150-450); RED BLOOD COUNT 4.68 MIL/MM3 (4.50-5.90); RED CELL DISTRIBUTION WIDTH 14.2 % (11.6-17.2); WHITE BLOOD COUNT 9.6 TH/MM3 (4.0-11.0)
[2017-03-13 03:30] LABS: BICARBONATE 21.2 MEQ/L (21.0-32.0); MAGNESIUM 1.8 MG/DL (1.5-2.5); POTASSIUM 3.9 MEQ/L (3.5-5.1)
[2017-03-13] MEDS: CHLORHEXIDINE GLUCONATE 2 % 1 PACK (2 CLOTHS) TOP SCH (04:00)
[2017-03-13] MEDS: INSULIN NovoLIN REGULAR SUPPLEMENTAL SCALE SQ SCH ×3 (07:00→19:00)
[2017-03-13] MEDS: CEFEPIME INJ 2,000 MG in SODIUM CHLORIDE 0.9% INJ 100 ML IV SCH ×3 (07:03→23:54)
--- NOTE | 2017-03-13 08:10 | PD.CARD.PN ---
Subjective Subjective Remarks Currently being warmed, off pressors, doing well hemodynamically Objective Medications Administered Medications Medications (Trade) Dose Ordered Sig/Dee Route PRN Reason Start Time Stop Time Status Last Admin Dose Admin Sodium Chloride (NS 1000 ml Inj) 1,000 ml @ 84 mls/hr [id number] IV 03/11/17 12:13 03/12/17 16:33 Famotidine (Pepcid Inj) 20 mg Q12HR IV PUSH 03/11/17 21:00 03/12/17 21:56 Artificial Tears (Tears Naturale Opth Soln) 1 drop TID EACH EYE 03/11/17 13:00 03/12/17 17:40 Docusate Sodium (Colace Liq) 100 mg Q12HR G-TUBE 03/11/17 12:15 03/12/17 21:55 Miscellaneous Information 1 [id number] XX 03/11/17 12:15 03/11/17 16:18 Chlorhexidine Gluconate 3 pack 3 pack Taper DAILY@04 TOP 03/12/17 04:00 03/08/18 03:59 03/13/17 04:00 Potassium Chloride 100 ml @ 50 mls/hr Q2H PRN IV For Potassium 2.8 - 3.2 mEq/L 03/11/17 12:15 03/11/17 23:01 Azithromycin 250 mg/Sodium Chloride 250 ml @ 250 mls/hr Q24H IV 03/11/17 14:00 03/12/17 13:04 Cefepime HCl/ Sodium Chloride (Maxipime Inj/NS Inj) 100 ml @ 200 mls/hr Q8H IV 03/11/17 15:00 03/13/17 07:03 IV Flush (NS Flush) 2 ml BID IVF 03/11/17 21:00 03/12/17 08:27 Aspirin (Aspirin Chew) 81 mg DAILY PO 03/12/17 09:00 03/12/17 08:25 Ticagrelor 90 mg 90 mg BID PO 03/11/17 21:00 03/12/17 21:56 Midazolam HCl 100 ml @ 0 mls/hr TITRATE IV 03/11/17 16:45 03/11/17 23:50 Fentanyl Citrate (fentaNYL DRIP) 250 ml @ 0 mls/hr TITRATE IV 03/11/17 17:00 03/12/17 17:40 Sodium Chloride (NS Flush) 2 ml UNSCH PRN IV FLUSH FLUSH AFTER USING IV ACCESS 03/11/17 16:45 03/12/17 21:56 Artificial Tears 1 applic 1 applic Q4H PRN EACH EYE SEE LABEL COMMENTS 03/11/17 16:45 03/12/17 11:50 Cisatracurium Besylate 100 mg/ Sodium Chloride 250 ml @ 0 mls/hr TITRATE IV 03/11/17 16:45 03/12/17 22:38 Vasopressin/ Sodium Chloride (Pitressin Inj/ NS Inj) 100 ml @ 0 mls/hr TITRATE IV 03/11/17 17:45 03/12/17 18:41 Vital Signs / I&O Vital Signs Date Time Temp Pulse Resp B/P Pulse Ox O2 Delivery O2 Flow Rate FiO2 03/13/17 06:00 56 03/13/17 04:28 99 35 03/13/17 04:00 59 03/13/17 04:00 93.4 59 14 120/74 100 153/59 03/13/17 04:00 35 03/13/17 02:00 47 03/13/17 01:26 100 35 03/13/17 00:00 91.6 45 14 132/60 100 149/66 03/13/17 00:00 35 03/13/17 00:00 45 03/12/17 23:00 91.4 43 14 106/77 100 140/63 03/12/17 22:27 100 35 03/12/17 22:00 43 03/12/17 22:00 91.4 43 14 112/67 100 135/60 03/12/17 21:00 91.6 49 14 118/68 100 140/65 03/12/17 20:19 100 35 03/12/17 20:00 35 03/12/17 20:00 46 03/12/17 20:00 91.4 46 14 121/67 100 148/70 03/12/17 18:00 42 03/12/17 16:00 91.4 41 14 119/70 100 122/60 03/12/17 16:00 41 03/12/17 16:00 35 03/12/17 14:47 100 35 03/12/17 14:00 45 03/12/17 12:00 35 03/12/17 12:00 40 03/12/17 12:00 91.6 40 14 122/71 100 125/63 03/12/17 10:00 42 03/12/17 09:34 100 35 I/O 03/12/17 03/12/17 03/12/17 03/13/17 03/13/17 03/13/17 07:00 15:00 23:00 07:00 15:00 23:00 Intake Total 1385 ml 1148 ml 1512 ml 793 ml Output Total 955 ml 1095 ml 695 ml 445 ml Balance 430 ml 53 ml 817 ml 348 ml Intake IV Total 1385 ml 1148 ml 1512 ml 793 ml Output Urine Total 955 ml 895 ml 545 ml 445 ml Gastric Drainage Total 200 ml 150 ml Physical Exam GENERAL: Intubated, sedated CARDIOVASCULAR: Bradycardic (cooled); no murmurs appreciated RESPIRATORY: Clear to auscultation. Breath sounds equal bilaterally. No wheezes , rales, or rhonchi. GASTROINTESTINAL: Abdomen soft, non-tender, nondistended. Normal active bowel sounds MUSCULOSKELETAL: Extremities without clubbing, cyanosis, or edema. NEURO: Intubated, sedated. Laboratory Laboratory Tests Test 03/12/17 03/12/17 03/12/17 03/13/17 09:45 10:30 15:50 03:00 Sodium Level 141 MEQ/L 142 MEQ/L 142 MEQ/L Potassium Level 4.1 MEQ/L 4.0 MEQ/L 3.9 MEQ/L Chloride Level 113 MEQ/L 113 MEQ/L 112 MEQ/L Carbon Dioxide Level 21.5 MEQ/L 23.1 MEQ/L 21.2 MEQ/L Anion Gap 7 MEQ/L 6 MEQ/L 9 MEQ/L Blood Urea Nitrogen 14 MG/DL 14 MG/DL 13 MG/DL Creatinine 0.77 MG/DL 0.69 MG/DL 0.59 MG/DL Estimat Glomerular Filtration 102 ML/MIN 116 ML/MIN 139 ML/MIN Rate Random Glucose 121 MG/DL 124 MG/DL 105 MG/DL Calcium Level 7.5 MG/DL 7.2 MG/DL 7.5 MG/DL Magnesium Level 2.0 MG/DL 1.8 MG/DL Blood Gas Puncture Site ART LINE Blood Gas Patient Temperature 98.6 Blood Gas HCO3 18 mmol/L Blood Gas Base Excess -6.8 mmol/L Blood Gas Oxygen Saturation 95 % Arterial Blood pH 7.34 Arterial Blood Partial 35 mmHg Pressure CO2 Arterial Blood Partial 108 mmHg Pressure O2 Arterial Blood Oxygen Content 19.9 Vol % Arterial Blood 1.8 % Carboxyhemoglobin Arterial Blood Methemoglobin 0.9 % Blood Gas Hemoglobin 14.8 G/DL Oxygen Delivery Device VENTILATOR Blood Gas Ventilator Setting Blood Gas Inspired Oxygen 35 % Protein Corrected Calcium 8.2 MG/DL Total Protein 5.2 GM/DL White Blood Count 9.6 TH/MM3 Red Blood Count 4.68 MIL/MM3 Hemoglobin 15.0 GM/DL Hematocrit 42.5 % Mean Corpuscular Volume 91.0 FL Mean Corpuscular Hemoglobin 32.0 PG Mean Corpuscular Hemoglobin 35.2 % Concent Red Cell Distribution Width 14.2 % Platelet Count 144 TH/MM3 Mean Platelet Volume 6.9 FL Neutrophils (%) (Auto) 85.4 % Lymphocytes (%) (Auto) 8.8 % Monocytes (%) (Auto) 4.6 % Eosinophils (%) (Auto) 0.8 % Basophils (%) (Auto) 0.4 % Neutrophils # (Auto) 8.2 TH/MM3 Lymphocytes # (Auto) 0.8 TH/MM3 Monocytes # (Auto) 0.4 TH/MM3 Eosinophils # (Auto) 0.1 TH/MM3 Basophils # (Auto) 0.0 TH/MM3 CBC Comment DIFF FINAL Differential Comment Lactic Acid Level 0.9 mmol/L Imaging Last Impressions Head CT 03/11/17 1129 Signed Impressions: Service Date/Time: Saturday, March 11, 2017 12:40 - CONCLUSION: Chronic changes without any significant hemorrhage or mass effect. Jacqueline Preston MD Chest X-Ray 03/11/17 1104 Signed Impressions: Service Date/Time: Saturday, March 11, 2017 11:10 - CONCLUSION: Interval development of haziness of both lungs not present previously may represent pulmonary edema. Jacqueline Preston MD Assessment and Plan Problem List: (1) Cardiac arrest Assessment and Plan: currently being warmed following cooling protocol; mgt per [facility] protocol (2) CAD (coronary artery disease) Assessment and Plan: now s/p PCI to LAD, cont asa/brillinta; not on bb due to bradycardia, statin held w/ LFT increase but can likely be added at a later date. (3) VF (ventricular fibrillation) Assessment and Plan: likely due to LAD ischemia, now s/p PCI, no further ventricular arrhythmias. Will get echo as well. Kamar Weiner MD Mar 13, 2017 08:10
[2017-03-13] MEDS: DOCUSATE SODIUM 100 MG/10 ML UDC G-TUBE SCH ×2 (09:00→21:08)
[2017-03-13] MEDS: ARTIFICIAL TEARS OPTH SOLN 15 ML BTL EACH EYE SCH ×3 (09:00→17:10)
[2017-03-13] MEDS: SODIUM CHLORIDE 0.9% FLUSH 5 ML FLUSH IVF SCH (09:00)
[2017-03-13] MEDS: SODIUM CHLORIDE 0.9% FLUSH 10 ML FLUSH IV FLUSH PRN (09:34)
[2017-03-13] MEDS: FAMOTIDINE 20 MG/2 ML VIAL IV PUSH SCH ×2 (09:34→21:08)
[2017-03-13] MEDS: ASPIRIN 81 MG CHEW TAB PO SCH (09:35)
[2017-03-13] MEDS: TICAGRELOR 90 MG TAB PO SCH ×2 (09:35→21:09)
[2017-03-13] MEDS: CISATRACURIUM 100 MG/NS 250 ML IV SCH ×2 (09:40)
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
[2017-03-13 10:20] LABS: INDIRECT BILIRUBIN 0.8 MG/DL (0.0-0.8); TOTAL BILIRUBIN ADULT 1.1 MG/DL (0.2-1.0)
--- NOTE | 2017-03-13 11:10 | RADRPT ---
EXAM DATE/TIME: 03/13/2017 11:08 [place] COMPARISON: CHEST SINGLE AP, March 11, 2017, 11:55. INDICATIONS : Respiratory failure. MEDICAL HISTORY : None. SURGICAL HISTORY : None. ENCOUNTER: Subsequent ACUITY: 3 days PAIN SCORE: Non-responsive. LOCATION: Chest FINDINGS: The endotracheal tube has its tip approximately 5 mm above the catracho. A nasogastric tube has its ti p below diaphragm. A right internal jugular central line has its tip in the superior vena cava. The re is no pneumothorax. The heart is stable. Right basilar streakiness is noted consistent with atel ectasis and/or mild infiltrate. Clinical correlation is recommended. CONCLUSION: 1. Right basilar streakiness consistent with atelectasis and/or infiltrate. Clinical correlation is recommended. Homero Felder MD on March 13, 2017 at 11:05 Board Certified Radiologist. This report was verified electronically.
[2017-03-13 11:36] LABS: MAGNESIUM 1.9 MG/DL (1.5-2.5); POTASSIUM 3.8 MEQ/L (3.5-5.1)
[2017-03-13] MEDS: AZITHROMYCIN INJ 250 MG in SODIUM CHLOR 0.9% 250 ML INJ 250 ML IV SCH (13:25)
[2017-03-13] MEDS: MIDAZOLAM 100 MG/ML INJ 100 ML IV SCH (17:09)
[2017-03-13 19:21] LABS: BICARBONATE 24.2 MEQ/L (21.0-32.0); MAGNESIUM 1.8 MG/DL (1.5-2.5); POTASSIUM 3.8 MEQ/L (3.5-5.1)
[2017-03-13] MEDS: HEPARIN SODIUM - SQ 10,000 UNITS/ML VIAL SQ SCH (21:09)
[2017-03-14] VITALS (18 sets, daily range): BP systolic 93–177; BP diastolic 51–82; PULSE 74–111; RESP 14–25; TEMP 100.1–102.2; O2SAT 94–100
[2017-03-14] MEDS: INSULIN NovoLIN REGULAR SUPPLEMENTAL SCALE SQ SCH ×4 (01:00→19:00)
[2017-03-14] MEDS: RESP: ALBUTEROL 2.5 MG/IPRATROPIUM 0.5 MG NEB (SCH) INH ×4 (03:11→20:25)
[2017-03-14] MEDS: CHLORHEXIDINE GLUCONATE 2 % 1 PACK (2 CLOTHS) TOP SCH (04:00)
[2017-03-14 04:46] LABS: AUTOMATED NEUTROPHIL # 7.4 TH/MM3 (1.8-7.7); BASOPHIL % 0.3 % (0.0-2.0); EOSINOPHIL % 0.4 % (0.0-4.0); HEMATOCRIT 41.7 % (39.0-51.0); HEMO FLAGS DIFF FINAL; LYMPH % 9.1 % (9.0-44.0); LYMPHOCYTE # 0.8 TH/MM3 (1.0-4.8); MEAN CELL VOLUME 92.4 FL (80.0-100.0); MEAN CORPUSCULAR HEMOGLOBIN 30.8 PG (27.0-34.0); MEAN CORPUSCULAR HGB CONC 33.3 % (32.0-36.0); MONO % 8.9 % (0.0-8.0); NEUT % 81.3 % (16.0-70.0); PLATELET COUNT 149 TH/MM3 (150-450); RED BLOOD COUNT 4.51 MIL/MM3 (4.50-5.90); RED CELL DISTRIBUTION WIDTH 14.5 % (11.6-17.2); WHITE BLOOD COUNT 9.1 TH/MM3 (4.0-11.0)
[2017-03-14 05:18] LABS: ALKALINE PHOSPHATASE 66 U/L (45-117); ALT (GPT) 75 U/L (12-78); ANION GAP 8 MEQ/L (5-15); AST (GOT) 42 U/L (15-37); BICARBONATE 25.1 MEQ/L (21.0-32.0); BLOOD UREA NITROGEN 12 MG/DL (7-18); CHLORIDE 109 MEQ/L (98-107); GLOMERULAR FILTRATION RATE 94 ML/MIN (>89); MAGNESIUM 1.8 MG/DL (1.5-2.5); POTASSIUM 3.7 MEQ/L (3.5-5.1); SODIUM (NA) 142 MEQ/L (136-145)
[2017-03-14] MEDS: CEFEPIME INJ 2,000 MG in SODIUM CHLORIDE 0.9% INJ 100 ML IV SCH ×3 (06:25→23:22)
--- NOTE | 2017-03-14 07:39 | PD.CARD.PN ---
Subjective Subjective Remarks Intubated. Sedated. Objective Medications Item Value Date Time Heparin Sodium 5,000 units 03/13/17 2100 (Porcine) Q12HR/SQ 03/13/172108 (Heparin Inj) Aspirin 81 mg 03/12/17 0900 (Aspirin Chew) DAILY/PO 03/13/17934 Ticagrelor 90 mg 03/11/172099 (Brilinta) BID/PO 03/13/172108 Vital Signs / I&O Vital Signs Date Time Temp Pulse Resp B/P Pulse Ox O2 Delivery O2 Flow Rate FiO2 03/14/17 06:00 75 03/14/17 05:10 99 35 03/14/17 04:00 100.2 75 14 108/71 100 140/51 03/14/17 04:00 35 03/14/17 04:00 77 03/14/17 02:07 99 35 03/14/17 02:00 74 03/14/17 00:00 80 03/14/17 00:00 35 03/14/17 00:00 100.2 80 14 117/72 99 144/58 03/13/17 23:11 99 35 03/13/17 22:00 90 03/13/17 20:00 92 03/13/17 20:00 100.9 92 14 118/78 99 175/74 03/13/17 20:00 35 03/13/17 19:31 98 35 03/13/17 18:00 88 03/13/17 16:00 99.5 90 14 117/55 95 146/65 03/13/17 16:00 73 03/13/17 16:00 35 03/13/17 15:23 94 35 03/13/17 14:00 73 03/13/17 12:00 71 03/13/17 12:00 35 03/13/17 12:00 97.4 67 14 138/56 100 125/53 03/13/17 11:34 100 35 03/13/17 10:00 73 03/13/17 09:19 100 35 03/13/17 08:00 35 03/13/17 08:00 62 03/13/17 08:00 95.7 62 14 106/60 100 144/60 I/O 03/13/17 03/13/17 03/13/17 03/14/17 03/14/17 03/14/17 07:00 15:00 23:00 07:00 15:00 23:00 Intake Total 793 ml 950 ml 945 ml 463 ml Output Total 500 ml 765 ml 450 ml 400 ml Balance 293 ml 185 ml 495 ml 63 ml Intake IV Total 793 ml 950 ml 907 ml 342 ml Tube Feeding 38 ml 121 ml Output Urine Total 500 ml 565 ml 450 ml 400 ml Gastric Drainage Total 200 ml Physical Exam GENERAL: Well developed, well nourished. Intubated. Sedated. HEENT: Jugular venous pressure is normal. CHEST: Lungs clear to auscultation anteriorly. CARDIAC: Regular rate and rhythm without S3, S4, or murmur. ABDOMEN: Soft, nontender, no hepatosplenomegaly. Bowel sounds present. EXTREMITIES: No clubbing, cyanosis, or edema. Laboratory Laboratory Tests Test 03/13/17 03/13/17 03/14/17 10:25 18:40 04:20 Sodium Level 140 MEQ/L 141 MEQ/L 142 MEQ/L Potassium Level 3.8 MEQ/L 3.8 MEQ/L 3.7 MEQ/L Chloride Level 110 MEQ/L 110 MEQ/L 109 MEQ/L Carbon Dioxide Level 24.0 MEQ/L 24.2 MEQ/L 25.1 MEQ/L Anion Gap 6 MEQ/L 7 MEQ/L 8 MEQ/L Blood Urea Nitrogen 11 MG/DL 10 MG/DL 12 MG/DL Creatinine 0.66 MG/DL 0.77 MG/DL 0.83 MG/DL Estimat Glomerular Filtration 122 ML/MIN 102 ML/MIN 94 ML/MIN Rate Random Glucose 91 MG/DL 99 MG/DL 94 MG/DL Calcium Level 7.5 MG/DL 7.7 MG/DL 7.6 MG/DL Magnesium Level 1.9 MG/DL 1.8 MG/DL 1.8 MG/DL White Blood Count 9.1 TH/MM3 Red Blood Count 4.51 MIL/MM3 Hemoglobin 13.9 GM/DL Hematocrit 41.7 % Mean Corpuscular Volume 92.4 FL Mean Corpuscular Hemoglobin 30.8 PG Mean Corpuscular Hemoglobin 33.3 % Concent Red Cell Distribution Width 14.5 % Platelet Count 149 TH/MM3 Mean Platelet Volume 7.4 FL Neutrophils (%) (Auto) 81.3 % Lymphocytes (%) (Auto) 9.1 % Monocytes (%) (Auto) 8.9 % Eosinophils (%) (Auto) 0.4 % Basophils (%) (Auto) 0.3 % Neutrophils # (Auto) 7.4 TH/MM3 Lymphocytes # (Auto) 0.8 TH/MM3 Monocytes # (Auto) 0.8 TH/MM3 Eosinophils # (Auto) 0.0 TH/MM3 Basophils # (Auto) 0.0 TH/MM3 CBC Comment DIFF FINAL Differential Comment Phosphorus Level 2.6 MG/DL Total Bilirubin 1.0 MG/DL Aspartate Amino Transf 42 U/L (AST/SGOT) Alanine Aminotransferase 75 U/L (ALT/SGPT) Alkaline Phosphatase 66 U/L Total Protein 5.2 GM/DL Albumin 2.2 GM/DL Assessment and Plan Problem List: (1) CAD (coronary artery disease) Assessment and Plan: Overall stable s/p stent proximal LAD, PTCA diagonal. Continue Brilinta and aspirin. Start beta sky, SILVINA-I. Check echo. (2) VF (ventricular fibrillation) Assessment and Plan: Episode nonsustained VT past 24 hours, otherwise stable rhythm status. Rec start beta sky. (3) Cardiac arrest Assessment and Plan: Doing well status post code cool. To undergo CPAP trials today. Code Status full code Problem Qualifiers (1) CAD (coronary artery disease): Qualified Code: I25.110 - Coronary artery disease involving [place] coronary artery of [place] heart with unstable angina pectoris Farshad Esquivel MD Mar 14, 2017 07:39
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
--- NOTE | 2017-03-14 09:06 | EC ---
Study Study Date:03/13/2017 STUDY CONCLUSIONS SUMMARY LEFT VENTRICLE: The cavity size was moderately dilated. Systolic function was severely reduced. The estimated ejection fraction was in the range of 15% to 20%. Diffuse hypokinesis. Akinesis of the anteroseptal and anterior myocardium. If LV function is below 40, please consider prescribing an ACEI or ARB or document rationale for non-use. PROCEDURE DATA STUDY STATUS: Elective. Procedure: Transthoracic echocardiography. Image quality was good. Scanning was performed from the parasternal, apical, and subcostal acoustic windows. Study completion: The patient tolerated the procedure well. Transthoracic echocardiography. M-mode, complete 2D, complete spectral Doppler, and color Doppler. Height: Height: 72in. Weight: Weight: 187.6lb. Body mass index: BMI: 25.5kg/m^2. Body surface area: BSA: 2.08m^2. Patient status: Inpatient. CARDIAC ANATOMY LEFT VENTRICLE: The cavity size was moderately dilated. There was no hypertrophy. Systolic function was severely reduced. The estimated ejection fraction was in the range of 15% to 20%. Diffuse hypokinesis. Regional wall motion abnormalities: Akinesis of the anteroseptal and anterior myocardium. AORTIC VALVE: Trileaflet. Doppler: There was no stenosis. Trace to mild regurgitation. Valve area: 3.64cm^2 (Vmax). Indexed valve area: 1.75cm^2/m^2 (Vmax). Peak gradient: 10mm Hg (S). MITRAL VALVE: The valve appears to be grossly normal. Doppler: There was no evidence for stenosis. No significant regurgitation. Valve area by pressure half-time: 2.65cm^2. Indexed valve area by pressure half-time: 1.27cm^2/m^2. LEFT ATRIUM: The atrium was at the upper limits of normal in size. PULMONIC VALVE: Not well visualized. Doppler: There was no evidence for stenosis. No significant regurgitation. TRICUSPID VALVE: The valve appears to be grossly normal. Doppler: There was no evidence for stenosis. No significant regurgitation. Peak gradient: 14mm Hg (D). PERICARDIUM: There was no pericardial effusion. Patient weight: 187.6lb _Ejection fraction:_ 65-75% _Fractional shortening:_ 32% up to 5Kg 5-11.5Kg 11.6-22.9Kg 23-45Kg 45-57Kg Aortic Root 7-13 <17 13-22 17-27 17-27 LA diam 6-13 <23 24-38 33-47 37-40 RVID 10-17 7-15 7-15 7-18 8-17 LVIDd 12-22 <32 24-38 33-47 37-40 LVPW 2-4 3-6 5-7 6-8 7-8 IVS 2-4 3-6 5-7 6-8 7-8 BASIC MEASUREMENTS ADULT NORMAL Left ventricle LV internal dimension, ED, chordal *74.4 mm 43-52 level, PLAX LV internal dimension, ES, chordal *70.4 mm 23-38 level, PLAX Fractional shortening, chordal level, *5 % >29 PLAX LV posterior wall thickness, ED 10.2 mm IVS/LVPW ratio, ED 0.95 <1.3 Volume, ED, MOD, 1-plane 244 ml Volume, ES, MOD, 1-plane 198 ml Ejection fraction, MOD, 1-plane 19 % Stroke volume, MOD, 1-plane 46 ml Volume index, ED, MOD, 1-plane 117 ml/m^2 Volume index, ES, MOD, 1-plane 95 ml/m^2 Stroke index, MOD, 1-plane 22.1 ml/m^2 Volume, ED, MOD, 2-plane 230 ml Volume, ES, MOD, 2-plane 174 ml Ejection fraction, MOD, 2-plane 24 % Stroke volume, MOD, 2-plane 56 ml Volume index, ED, MOD, 2-plane 111 ml/m^2 Volume index, ES, MOD, 2-plane 84 ml/m^2 Stroke index, MOD, 2-plane 26.9 ml/m^2 Ventricular septum Septal thickness, ED 9.69 mm Aortic valve Leaflet separation 26 mm 15-26 Left atrium Anterior-posterior dimension 32 mm Anterior-posterior dimension index 1.54 cm/m^2 <2.2 Right ventricle RV internal dimension, ED, PLAX 24.7 mm 19-38 BASIC MEASUREMENTS ADULT NORMAL Aortic valve Leaflet separation 26 mm 15-26 Aorta Root diameter, ED *41 mm 20-37 DOPPLER MEASUREMENTS ADULT NORMAL Aortic valve Peak velocity, S 162 cm/s Peak gradient, S 10 mm Hg Valve area, Vmax 3.64 cm^2 Valve area index, Vmax 1.75 cm^2/m^2 Regurgitant velocity, ED 379 cm/s Regurgitant deceleration 2810 cm/s^2 Regurgitant pressure half-time 371 ms Regurgitant gradient, ED 57 mm Hg Mitral valve Peak E-wave velocity 55.8 cm/s Peak A-wave velocity 61.2 cm/s Pressure half-time 83 ms Peak E/A ratio 0.9 Valve area, pressure half-time 2.65 cm^2 Valve area index, pressure half-time 1.27 cm^2/m^2 Tricuspid valve Peak gradient, D 14 mm Hg Maximal inflow velocity 189 cm/s Systemic veins Estimated CVP 10 mm Hg Pulmonic valve Peak velocity, S 109 cm/s LEGEND: Mean values are shown as u=mean value. Asterisk (*) hlal values outside specified normal range. Prepared and signed by Hari Mcdonald [id number]
[2017-03-14] MEDS: FAMOTIDINE 20 MG/2 ML VIAL IV PUSH SCH ×2 (09:22→21:28)
[2017-03-14] MEDS: DOCUSATE SODIUM 100 MG/10 ML UDC G-TUBE SCH ×2 (09:22→21:29)
[2017-03-14] MEDS: HEPARIN SODIUM - SQ 10,000 UNITS/ML VIAL SQ SCH ×2 (09:23→21:28)
[2017-03-14] MEDS: ASPIRIN 81 MG CHEW TAB PO SCH (09:23)
[2017-03-14] MEDS: CARVEDILOL 3.125 MG TAB PO SCH ×2 (09:23→21:27)
[2017-03-14] MEDS: TICAGRELOR 90 MG TAB PO SCH ×2 (09:24→21:27)
[2017-03-14] MEDS: ARTIFICIAL TEARS OPTH SOLN 15 ML BTL EACH EYE SCH ×3 (09:28→18:00)
[2017-03-14] MEDS: ENALAPRIL MALEATE 2.5 MG TAB PO SCH (11:19)
[2017-03-14 14:05] LABS: BLOOD GAS BASE EXCESS -1.6 mmol/L (-2-2); BLOOD GAS CARBOXYHEMOGLOBIN 2.1 % (0-4); BLOOD GAS HCO3 23 mmol/L (22-26); BLOOD GAS METHEMOGLOBIN 1.2 % (0-2); BLOOD GAS O2 HGB SATURATION 94 % (90-100); BLOOD GAS OXYGEN CONTENT 19.6 Vol % (12.0-20.0); BLOOD GAS PCO2 37 mmHg (38-42); BLOOD GAS PO2 93 mmHg (61-120); BLOOD GAS TOTAL HGB 14.7 G/DL (12.0-16.0); TEMP CORR TO 98.6
[2017-03-14 14:06] LABS: CRITICAL VALUE NO; OXYGEN DEVICE VENT
[2017-03-14 14:07] LABS: DRAW SITE ALINE; FIO2 30 %; STAT YES
[2017-03-14] MEDS ORDERED: hydrALAZINE HCL 20 MG/ML VIAL IV PUSH PRN (16:00)
[2017-03-14] MEDS: AZITHROMYCIN INJ 250 MG in SODIUM CHLOR 0.9% 250 ML INJ 250 ML IV SCH (16:23)
[2017-03-14] MEDS ORDERED: ACETAMINOPHEN 650 MG SUPP RECTAL PRN (19:15)
[2017-03-14] MEDS ORDERED: LORazepam 2 MG/ML VIAL IV PUSH PRN ×2 (21:00)
[2017-03-14] MEDS ORDERED: LORazepam 2 MG TAB PO PRN (21:00)
[2017-03-14] MEDS ORDERED: LORazepam 1 MG TAB PO PRN (21:00)
[2017-03-14] MEDS ORDERED: FLUMAZENIL 0.5 MG/5 ML VIAL IV PUSH PRN (21:00)
[2017-03-14] MEDS: LORazepam 2 MG/ML VIAL IV PUSH PRN (21:29)
[2017-03-15] VITALS (13 sets, daily range): BP systolic 124–157; BP diastolic 48–82; PULSE 78–94; RESP 20–28; TEMP 97.3–101.6; O2SAT 92–97
[2017-03-15] MEDS: LORazepam 2 MG/ML VIAL IV PUSH PRN ×2 (00:37→21:22)
[2017-03-15] MEDS: INSULIN NovoLIN REGULAR SUPPLEMENTAL SCALE SQ SCH ×4 (01:00→19:00)
[2017-03-15] MEDS: CHLORHEXIDINE GLUCONATE 2 % 1 PACK (2 CLOTHS) TOP SCH (04:00)
[2017-03-15] MEDS: RESP: ALBUTEROL 2.5 MG/IPRATROPIUM 0.5 MG NEB (SCH) INH ×2 (04:12→09:48)
[2017-03-15 04:57] LABS: AUTOMATED NEUTROPHIL # 12.1 TH/MM3 (1.8-7.7); BASOPHIL % 0.2 % (0.0-2.0); EOSINOPHIL % 0.1 % (0.0-4.0); HEMATOCRIT 40.2 % (39.0-51.0); HEMO FLAGS DIFF FINAL; LYMPH % 4.3 % (9.0-44.0); LYMPHOCYTE # 0.6 TH/MM3 (1.0-4.8); MEAN CELL VOLUME 91.8 FL (80.0-100.0); MEAN CORPUSCULAR HEMOGLOBIN 30.7 PG (27.0-34.0); MEAN CORPUSCULAR HGB CONC 33.4 % (32.0-36.0); MONO % 5.1 % (0.0-8.0); NEUT % 90.3 % (16.0-70.0); PLATELET COUNT 146 TH/MM3 (150-450); RED BLOOD COUNT 4.38 MIL/MM3 (4.50-5.90); RED CELL DISTRIBUTION WIDTH 14.1 % (11.6-17.2); WHITE BLOOD COUNT 13.5 TH/MM3 (4.0-11.0)
[2017-03-15 05:30] LABS: ALKALINE PHOSPHATASE 68 U/L (45-117); ALT (GPT) 49 U/L (12-78); ANION GAP 10 MEQ/L (5-15); AST (GOT) 38 U/L (15-37); BICARBONATE 24.5 MEQ/L (21.0-32.0); BLOOD UREA NITROGEN 13 MG/DL (7-18); CHLORIDE 108 MEQ/L (98-107); GLOMERULAR FILTRATION RATE 102 ML/MIN (>89); MAGNESIUM 1.9 MG/DL (1.5-2.5); SODIUM (NA) 142 MEQ/L (136-145); TOTAL BILIRUBIN ADULT 1.9 MG/DL (0.2-1.0)
[2017-03-15] MEDS: CEFEPIME INJ 2,000 MG in SODIUM CHLORIDE 0.9% INJ 100 ML IV SCH (06:34)
[2017-03-15] MEDS: POTASSIUM CHLOR 40 MEQ PREMIX 100 ML IV PRN ×2 (06:34→09:34)
[2017-03-15] MEDS: FAMOTIDINE 20 MG/2 ML VIAL IV PUSH SCH ×2 (08:23→20:43)
[2017-03-15] MEDS: CARVEDILOL 3.125 MG TAB PO SCH (08:23)
[2017-03-15] MEDS: ASPIRIN 81 MG CHEW TAB PO SCH (08:23)
[2017-03-15] MEDS: HEPARIN SODIUM - SQ 10,000 UNITS/ML VIAL SQ SCH ×2 (08:24→20:46)
[2017-03-15] MEDS: TICAGRELOR 90 MG TAB PO SCH ×2 (08:24→20:44)
[2017-03-15] MEDS: DOCUSATE SODIUM 100 MG/10 ML UDC G-TUBE SCH ×2 (08:24→20:41)
[2017-03-15] MEDS: ENALAPRIL MALEATE 2.5 MG TAB PO SCH (08:24)
[2017-03-15] MEDS: ARTIFICIAL TEARS OPTH SOLN 15 ML BTL EACH EYE SCH ×3 (08:25→17:27)
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
[2017-03-15] MEDS: THIAMINE HCL 100 MG TAB PO SCH (09:33)
[2017-03-15] MEDS: PIPERACIL-TAZO 4.5 GM PREMIX 100 ML IV SCH ×3 (09:33→20:43)
[2017-03-15] MEDS: FOLIC ACID 1 MG TAB PO SCH (09:33)
[2017-03-15] MEDS: MULTIVITAMIN TAB PO SCH (09:33)
[2017-03-15] MEDS: VANCOMYCIN INJ 1,000 MG in SODIUM CHLOR 0.9% 250 ML INJ 250 ML IV SCH ×2 (09:34→20:46)
--- NOTE | 2017-03-15 10:10 | RADRPT ---
EXAM DATE/TIME: 03/15/2017 09:03 [facility] COMPARISON: CHEST SINGLE AP, March 13, 2017, 11:08. INDICATIONS : Fever. Respiratory failure. MEDICAL HISTORY : Hypertension. Cardiovascular disease. Stroke. SURGICAL HISTORY : None. ENCOUNTER: Subsequent ACUITY: 4 - 6 days PAIN SCORE: Non-responsive. LOCATION: Bilateral chest FINDINGS: ET tube has been removed. Central line is in good position. There are increasing consolidations in the right lower lobe. Stable interstitial edema is present. The heart remains enlarged.CONCLUSION: Increasing consolidation in his right base. Mariano Gabriel MD FACR on March 15, 2017 at 10:07 Board Certified Radiologist. This report was verified electronically.
--- NOTE | 2017-03-15 11:30 | PD.CARD.PN ---
Subjective Subjective Remarks Awake. Not answering most questions. Seems to deny pain. Objective Medications Item Value Date Time Carvedilol 3.125 mg 03/14/17 0900 (Coreg) Q12HR/PO 03/15/17 0823 Enalapril Maleate 2.5 mg 03/14/17 0900 (Vasotec) DAILY/PO 03/15/17 0824 Heparin Sodium 5,000 units 03/13/17 2100 (Porcine) Q12HR/SQ 03/15/17 0824 (Heparin Inj) Aspirin 81 mg 03/12/17 0900 (Aspirin Chew) DAILY/PO 03/15/17 0823 Ticagrelor 90 mg 03/11/17 2100 (Brilinta) BID/PO 03/15/17 0824 Vital Signs / I&O Vital Signs Date Time Temp Pulse Resp B/P Pulse Ox O2 Delivery O2 Flow Rate FiO2 03/15/17 10:00 81 03/15/17 08:00 96 Nasal Cannula 2.00 03/15/17 08:00 78 03/15/17 08:00 97.3 79 22 138/73 97 Arterial Line 03/15/17 06:00 82 03/15/17 04:00 98.8 82 24 154/74 94 153/50 Arterial Line Automatic Cuff 03/15/17 04:00 81 03/15/17 04:00 97 Nasal Cannula 2.00 03/15/17 02:00 86 03/15/17 00:00 92 03/15/17 00:00 101.6 94 26 124/76 95 135/48 03/15/17 00:00 95 Nasal Cannula 2.00 03/14/17 22:00 106 03/14/17 20:30 95 Nasal Cannula 3.00 03/14/17 20:00 94 Nasal Cannula 2.00 03/14/17 20:00 106 03/14/17 20:00 102.2 106 25 93/55 94 147/51 03/14/17 18:00 101 03/14/17 16:00 101.3 101 14 114/82 97 177/79 03/14/17 16:00 99 Nasal Cannula 2.00 03/14/17 16:00 101 03/14/17 15:25 99 Mask 7 03/14/17 14:00 111 03/14/17 12:00 100.7 100 14 115/59 95 161/61 03/14/17 12:00 100 03/14/17 12:00 35 03/14/17 11:40 95 30 I/O 03/14/17 03/14/17 03/14/17 03/15/17 03/15/17 03/15/17 07:00 15:00 23:00 07:00 15:00 23:00 Intake Total 463 ml 716 ml 365 ml 100 ml Output Total 400 ml 1475 ml 325 ml Balance 63 ml 716 ml -1110 ml -225 ml Intake IV Total 342 ml 416 ml 365 ml 100 ml Tube Feeding 121 ml 240 ml Tube Irrigant 60 ml Output Urine Total 400 ml 1475 ml 325 ml Physical Exam GENERAL: Well developed, well nourished. Intubated. Sedated. HEENT: Jugular venous pressure is normal. CHEST: Lungs clear to auscultation anteriorly. CARDIAC: Regular rate and rhythm without S3, S4, or murmur. ABDOMEN: Soft, nontender, no hepatosplenomegaly. Bowel sounds present. EXTREMITIES: No clubbing, cyanosis, or edema. Laboratory Laboratory Tests Test 03/14/17 03/15/17 13:47 04:05 Blood Gas Puncture Site EUGENIA Blood Gas Patient Temperature 98.6 Blood Gas HCO3 23 mmol/L Blood Gas Base Excess -1.6 mmol/L Blood Gas Oxygen Saturation 94 % Arterial Blood pH 7.40 Arterial Blood Partial 37 mmHg Pressure CO2 Arterial Blood Partial 93 mmHg Pressure O2 Arterial Blood Oxygen Content 19.6 Vol % Arterial Blood 2.1 % Carboxyhemoglobin Arterial Blood Methemoglobin 1.2 % Blood Gas Hemoglobin 14.7 G/DL Oxygen Delivery Device VENT Blood Gas Ventilator Setting Blood Gas Inspired Oxygen 30 % White Blood Count 13.5 TH/MM3 Red Blood Count 4.38 MIL/MM3 Hemoglobin 13.4 GM/DL Hematocrit 40.2 % Mean Corpuscular Volume 91.8 FL Mean Corpuscular Hemoglobin 30.7 PG Mean Corpuscular Hemoglobin 33.4 % Concent Red Cell Distribution Width 14.1 % Platelet Count 146 TH/MM3 Mean Platelet Volume 7.7 FL Neutrophils (%) (Auto) 90.3 % Lymphocytes (%) (Auto) 4.3 % Monocytes (%) (Auto) 5.1 % Eosinophils (%) (Auto) 0.1 % Basophils (%) (Auto) 0.2 % Neutrophils # (Auto) 12.1 TH/MM3 Lymphocytes # (Auto) 0.6 TH/MM3 Monocytes # (Auto) 0.7 TH/MM3 Eosinophils # (Auto) 0.0 TH/MM3 Basophils # (Auto) 0.0 TH/MM3 CBC Comment DIFF FINAL Differential Comment Sodium Level 142 MEQ/L Potassium Level 3.0 MEQ/L Chloride Level 108 MEQ/L Carbon Dioxide Level 24.5 MEQ/L Anion Gap 10 MEQ/L Blood Urea Nitrogen 13 MG/DL Creatinine 0.77 MG/DL Estimat Glomerular Filtration 102 ML/MIN Rate Random Glucose 110 MG/DL Calcium Level 8.0 MG/DL Phosphorus Level 2.3 MG/DL Magnesium Level 1.9 MG/DL Total Bilirubin 1.9 MG/DL Aspartate Amino Transf 38 U/L (AST/SGOT) Alanine Aminotransferase 49 U/L (ALT/SGPT) Alkaline Phosphatase 68 U/L Total Protein 5.4 GM/DL Albumin 2.2 GM/DL Assessment and Plan Problem List: (1) CAD (coronary artery disease) Assessment and Plan: Overall stable s/p stent proximal LAD, PTCA diagonal. Continue Brilinta and aspirin. Cont beta sky, SILVINA-I, increase dosing as tolerated. EF reportedly 15-20% by echo. (2) VF (ventricular fibrillation) Assessment and Plan: Stable overnight. Continue beta sky. Consider Life Vest. Code Status full code Problem Qualifiers (1) CAD (coronary artery disease): Qualified Code: I25.110 - Coronary artery disease involving [place] coronary artery of [place] heart with unstable angina pectoris Farshad Esquivel MD Mar 15, 2017 11:30
[2017-03-15] MEDS ORDERED: PILL SPLITTER OTHER PRN (12:00)
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
[2017-03-15] MEDS: AZITHROMYCIN INJ 250 MG in SODIUM CHLOR 0.9% 250 ML INJ 250 ML IV SCH (15:51)
[2017-03-15] MEDS: ATORVASTATIN 40 MG TAB PO SCH (20:45)
[2017-03-15] MEDS ORDERED: CARVEDILOL 3.125 MG TAB PO SCH (21:00)
[2017-03-15] MEDS ORDERED: ENALAPRIL MALEATE 2.5 MG TAB PO SCH (21:00)
[2017-03-16] VITALS (15 sets, daily range): BP systolic 121–148; BP diastolic 61–79; PULSE 74–87; RESP 20–35; TEMP 97.8–99.8; O2SAT 91–100
[2017-03-16] MEDS: INSULIN NovoLIN REGULAR SUPPLEMENTAL SCALE SQ SCH ×3 (00:54→13:00)
[2017-03-16] MEDS: LORazepam 2 MG/ML VIAL IV PUSH PRN ×3 (02:15→20:42)
[2017-03-16] MEDS: PIPERACIL-TAZO 4.5 GM PREMIX 100 ML IV SCH ×4 (02:16→20:43)
[2017-03-16] MEDS: CHLORHEXIDINE GLUCONATE 2 % 1 PACK (2 CLOTHS) TOP SCH (04:00)
[2017-03-16 06:22] LABS: AUTOMATED NEUTROPHIL # 11.4 TH/MM3 (1.8-7.7); BASOPHIL % 0.2 % (0.0-2.0); EOSINOPHIL # 0.1 TH/MM3 (0-0.4); EOSINOPHIL % 0.8 % (0.0-4.0); HEMATOCRIT 39.9 % (39.0-51.0); HEMO FLAGS DIFF FINAL; LYMPH % 4.5 % (9.0-44.0); LYMPHOCYTE # 0.6 TH/MM3 (1.0-4.8); MEAN CELL VOLUME 92.5 FL (80.0-100.0); MEAN CORPUSCULAR HEMOGLOBIN 31.3 PG (27.0-34.0); MEAN CORPUSCULAR HGB CONC 33.8 % (32.0-36.0); MONO % 7.5 % (0.0-8.0); PLATELET COUNT 161 TH/MM3 (150-450); RED BLOOD COUNT 4.32 MIL/MM3 (4.50-5.90); RED CELL DISTRIBUTION WIDTH 14.1 % (11.6-17.2); WHITE BLOOD COUNT 13.1 TH/MM3 (4.0-11.0)
[2017-03-16 06:29] LABS: ALKALINE PHOSPHATASE 65 U/L (45-117); ALT (GPT) 38 U/L (12-78); ANION GAP 10 MEQ/L (5-15); AST (GOT) 37 U/L (15-37); BICARBONATE 25.4 MEQ/L (21.0-32.0); BLOOD UREA NITROGEN 14 MG/DL (7-18); CHLORIDE 107 MEQ/L (98-107); GLOMERULAR FILTRATION RATE 105 ML/MIN (>89); POTASSIUM 3.1 MEQ/L (3.5-5.1); SODIUM (NA) 142 MEQ/L (136-145); TOTAL BILIRUBIN ADULT 1.6 MG/DL (0.2-1.0)
[2017-03-16] MEDS: POTASSIUM CHLOR 20 MEQ PREMIX 100 ML IV PRN ×4 (06:55→16:45)
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
[2017-03-16] MEDS: RESP: ALBUTEROL 2.5 MG/IPRATROPIUM 0.5 MG NEB (SCH) NEB ×3 (08:04→19:32)
--- NOTE | 2017-03-16 08:15 | PD.CARD.PN ---
Subjective Subjective Remarks Awake. Mildly agitated. Seems to deny pain, dyspnea, otherwise not responding to questions. Objective Medications Item Value Date Time Carvedilol 6.25 mg 03/15/172099 (Coreg) Q12HR/PO 03/15/172044 Enalapril Maleate 5 mg 03/15/172099 (Vasotec) BID/PO 03/15/172044 Atorvastatin 40 mg 03/15/172099 Calcium HS/PO 03/15/172044 (Lipitor) Heparin Sodium 5,000 units 03/13/172099 (Porcine) Q12HR/SQ 03/15/172045 (Heparin Inj) Aspirin 81 mg 03/12/17899 (Aspirin Chew) DAILY/PO 03/15/17822 Ticagrelor 90 mg 03/11/172099 (Brilinta) BID/PO 03/15/172043 Vital Signs / I&O Vital Signs Date Time Temp Pulse Resp B/P Pulse Ox O2 Delivery O2 Flow Rate FiO2 03/16/17 08:05 93 Nasal Cannula 3.00 03/16/17 06:00 84 03/16/17 04:00 98.4 86 28 148/77 91 03/16/17 04:00 86 03/16/17 04:00 91 Nasal Cannula 3.00 03/16/17 02:00 87 03/16/17 00:00 98.6 83 28 128/70 92 03/16/17 00:00 92 Nasal Cannula 2.00 03/16/17 00:00 83 03/15/17 22:00 83 03/15/17 20:00 92 03/15/17 20:00 98.5 92 28 157/82 92 03/15/17 20:00 92 Nasal Cannula 2.00 03/15/17 19:45 94 Nasal Cannula 3.00 03/15/17 18:00 87 03/15/17 16:00 98.0 89 20 131/72 94 03/15/17 16:00 96 Nasal Cannula 2.00 03/15/17 16:00 89 03/15/17 14:00 83 03/15/17 12:00 97 Nasal Cannula 2.00 03/15/17 12:00 98.0 85 20 133/72 94 03/15/17 12:00 85 03/15/17 10:00 81 I/O 03/15/17 03/15/17 03/15/17 03/16/17 03/16/17 03/16/17 07:00 15:00 23:00 07:00 15:00 23:00 Intake Total 100 ml 600 ml 404 ml 141 ml Output Total 325 ml 700 ml 300 ml 400 ml Balance -225 ml -100 ml 104 ml -259 ml Intake IV Total 100 ml 600 ml 404 ml 141 ml Tube Feeding 0 ml Output Urine Total 325 ml 700 ml 300 ml 400 ml Physical Exam GENERAL: Well developed, well nourished. Intubated. Sedated. HEENT: Jugular venous pressure is normal. CHEST: Coarse upper airway sounds. Few scattered rhonchi. CARDIAC: Regular rate and rhythm without S3, S4, or murmur. ABDOMEN: Soft, nontender, no hepatosplenomegaly. Bowel sounds present. EXTREMITIES: No clubbing, cyanosis, or edema. Laboratory Laboratory Tests Test 03/16/17 05:08 White Blood Count 13.1 TH/MM3 Red Blood Count 4.32 MIL/MM3 Hemoglobin 13.5 GM/DL Hematocrit 39.9 % Mean Corpuscular Volume 92.5 FL Mean Corpuscular Hemoglobin 31.3 PG Mean Corpuscular Hemoglobin 33.8 % Concent Red Cell Distribution Width 14.1 % Platelet Count 161 TH/MM3 Mean Platelet Volume 8.0 FL Neutrophils (%) (Auto) 87.0 % Lymphocytes (%) (Auto) 4.5 % Monocytes (%) (Auto) 7.5 % Eosinophils (%) (Auto) 0.8 % Basophils (%) (Auto) 0.2 % Neutrophils # (Auto) 11.4 TH/MM3 Lymphocytes # (Auto) 0.6 TH/MM3 Monocytes # (Auto) 1.0 TH/MM3 Eosinophils # (Auto) 0.1 TH/MM3 Basophils # (Auto) 0.0 TH/MM3 CBC Comment DIFF FINAL Differential Comment Sodium Level 142 MEQ/L Potassium Level 3.1 MEQ/L Chloride Level 107 MEQ/L Carbon Dioxide Level 25.4 MEQ/L Anion Gap 10 MEQ/L Blood Urea Nitrogen 14 MG/DL Creatinine 0.75 MG/DL Estimat Glomerular Filtration 105 ML/MIN Rate Random Glucose 95 MG/DL Calcium Level 7.8 MG/DL Phosphorus Level 2.4 MG/DL Magnesium Level 2.0 MG/DL Total Bilirubin 1.6 MG/DL Aspartate Amino Transf 37 U/L (AST/SGOT) Alanine Aminotransferase 38 U/L (ALT/SGPT) Alkaline Phosphatase 65 U/L Total Protein 5.6 GM/DL Albumin 2.1 GM/DL Imaging Last 48 hours Impressions Chest X-Ray 03/15/17 0000 Signed Impressions: Service Date/Time: Wednesday, March 15, 2017 09:03 - CONCLUSION: Increasing consolidation in his right base. Mariano Gabriel MD FACR Assessment and Plan Problem List: (1) CAD (coronary artery disease) Assessment and Plan: Overall stable s/p VF arrest, stent proximal LAD, PTCA diagonal 03/11/17. Continue Brilinta and aspirin. Cont beta sky, SILVINA-I, increase dosing as tolerated. EF reportedly 15-20% by echo. Will be out of town tomorrow. Coverage to see PRN over the weekend. (2) VF (ventricular fibrillation) Assessment and Plan: Stable overnight. Continue beta sky. Rec Life Vest if patient fully recovers neurologically; will order right before discharge if so. (3) Ischemic cardiomyopathy Assessment and Plan: Increasing right base consolidation on CXR. Patient probably with CHF as well. Rec continue beta sky, SILVINA-I. Rec diuresis. (4) Hyperlipidemia Assessment and Plan: Continue statin therapy, f/u lipid profile in a few weeks. Code Status full code Problem Qualifiers (1) CAD (coronary artery disease): Qualified Code: I25.110 - Coronary artery disease involving [place] coronary artery of [place] heart with unstable angina pectoris (2) Hyperlipidemia: Qualified Code: E78.2 - Mixed hyperlipidemia Farshad Esquivel MD Mar 16, 2017 08:15
[2017-03-16] MEDS: FAMOTIDINE 20 MG/2 ML VIAL IV PUSH SCH ×2 (09:23→20:42)
[2017-03-16] MEDS: VANCOMYCIN INJ 1,000 MG in SODIUM CHLOR 0.9% 250 ML INJ 250 ML IV SCH ×2 (09:24→22:17)
[2017-03-16] MEDS: HEPARIN SODIUM - SQ 10,000 UNITS/ML VIAL SQ SCH ×2 (09:28→20:43)
[2017-03-16] MEDS: ASPIRIN 81 MG CHEW TAB PO SCH (09:28)
[2017-03-16] MEDS: FOLIC ACID 1 MG TAB PO SCH (09:28)
[2017-03-16] MEDS: MULTIVITAMIN TAB PO SCH (09:28)
[2017-03-16] MEDS: TICAGRELOR 90 MG TAB PO SCH ×2 (09:28→20:42)
[2017-03-16] MEDS: THIAMINE HCL 100 MG TAB PO SCH (09:28)
[2017-03-16] MEDS: ARTIFICIAL TEARS OPTH SOLN 15 ML BTL EACH EYE SCH ×3 (09:29→17:21)
[2017-03-16] MEDS: DOCUSATE SODIUM 100 MG/10 ML UDC G-TUBE SCH ×2 (09:29→20:41)
[2017-03-16] MEDS: CARVEDILOL 12.5 MG TAB PO SCH ×2 (09:29→20:41)
[2017-03-16] MEDS: FUROSEMIDE 40 MG TAB PO SCH (09:43)
[2017-03-16] MEDS: ENALAPRIL MALEATE 5 MG TAB PO SCH ×2 (09:44→20:41)
[2017-03-16] MEDS: AZITHROMYCIN INJ 250 MG in SODIUM CHLOR 0.9% 250 ML INJ 250 ML IV SCH (13:45)
[2017-03-16] MEDS: ATORVASTATIN 40 MG TAB PO SCH (20:41)
[2017-03-16 23:30] LABS: BICARBONATE 27.4 MEQ/L (21.0-32.0); POTASSIUM 3.2 MEQ/L (3.5-5.1)
[2017-03-17] VITALS (14 sets, daily range): BP systolic 101–146; BP diastolic 58–75; PULSE 68–81; RESP 16–29; TEMP 98.2–100.1; O2SAT 92–98
[2017-03-17] MEDS: POTASSIUM CHLOR 20 MEQ PREMIX 100 ML IV PRN ×4 (01:08→09:37)
[2017-03-17] MEDS: LORazepam 2 MG/ML VIAL IV PUSH PRN ×3 (01:32→21:02)
[2017-03-17] MEDS: PIPERACIL-TAZO 4.5 GM PREMIX 100 ML IV SCH ×4 (03:26→21:01)
[2017-03-17] MEDS: RESP: ALBUTEROL 2.5 MG/IPRATROPIUM 0.5 MG NEB (SCH) NEB ×4 (03:56→19:46)
[2017-03-17] MEDS: CHLORHEXIDINE GLUCONATE 2 % 1 PACK (2 CLOTHS) TOP SCH (04:00)
[2017-03-17 06:44] LABS: AUTOMATED NEUTROPHIL # 7.1 TH/MM3 (1.8-7.7); BASOPHIL % 0.2 % (0.0-2.0); EOSINOPHIL # 0.3 TH/MM3 (0-0.4); EOSINOPHIL % 3.1 % (0.0-4.0); HEMATOCRIT 40.2 % (39.0-51.0); HEMO FLAGS DIFF FINAL; LYMPH % 7.3 % (9.0-44.0); LYMPHOCYTE # 0.7 TH/MM3 (1.0-4.8); MEAN CELL VOLUME 90.8 FL (80.0-100.0); MEAN CORPUSCULAR HEMOGLOBIN 31.3 PG (27.0-34.0); MEAN CORPUSCULAR HGB CONC 34.4 % (32.0-36.0); MONO % 9.9 % (0.0-8.0); NEUT % 79.5 % (16.0-70.0); PLATELET COUNT 182 TH/MM3 (150-450); RED BLOOD COUNT 4.42 MIL/MM3 (4.50-5.90); RED CELL DISTRIBUTION WIDTH 14.1 % (11.6-17.2)
[2017-03-17 07:04] LABS: BICARBONATE 26.7 MEQ/L (21.0-32.0); POTASSIUM 3.7 MEQ/L (3.5-5.1)
[2017-03-17] MEDS: ARTIFICIAL TEARS OPTH SOLN 15 ML BTL EACH EYE SCH ×3 (09:00→16:50)
[2017-03-17] MEDS: THIAMINE HCL 100 MG TAB PO SCH (09:00)
[2017-03-17] MEDS: VANCOMYCIN INJ 1,000 MG in SODIUM CHLOR 0.9% 250 ML INJ 250 ML IV SCH ×2 (09:39→21:04)
[2017-03-17] MEDS: FUROSEMIDE 40 MG TAB PO SCH (09:39)
[2017-03-17] MEDS: ASPIRIN 81 MG CHEW TAB PO SCH (09:40)
[2017-03-17] MEDS: MULTIVITAMIN TAB PO SCH (09:40)
[2017-03-17] MEDS: DOCUSATE SODIUM 100 MG/10 ML UDC G-TUBE SCH ×3 (09:40→21:01)
[2017-03-17] MEDS: FOLIC ACID 1 MG TAB PO SCH (09:40)
[2017-03-17] MEDS: CARVEDILOL 12.5 MG TAB PO SCH ×3 (09:40→21:03)
[2017-03-17] MEDS: TICAGRELOR 90 MG TAB PO SCH ×3 (09:40→21:03)
[2017-03-17] MEDS: ENALAPRIL MALEATE 5 MG TAB PO SCH ×3 (09:40→21:04)
[2017-03-17] MEDS: FAMOTIDINE 20 MG/2 ML VIAL IV PUSH SCH ×2 (09:40→21:02)
[2017-03-17] MEDS: HEPARIN SODIUM - SQ 10,000 UNITS/ML VIAL SQ SCH ×2 (09:40→21:02)
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
[2017-03-17] MEDS: AZITHROMYCIN INJ 250 MG in SODIUM CHLOR 0.9% 250 ML INJ 250 ML IV SCH (16:50)
[2017-03-17] MEDS: ATORVASTATIN 40 MG TAB PO SCH ×2 (21:00→21:03)
--- NOTE | 2017-03-17 22:26 | HHI.IDPN ---
Subjective Subjective Remarks Delayed entry - pt was seen earlier today No new issues On nasal canulla afebrile all clx remain negative Antibiotics zosyn joceline saez Allergies: Coded Allergies: No Known Allergies (Verified , 03/11/17) Objective . Vital Signs Date Time Temp Pulse Resp B/P Pulse Ox O2 Delivery O2 Flow Rate FiO2 03/17/17 19:46 96 Nasal Cannula 3.00 03/17/17 18:00 71 03/17/17 16:00 70 03/17/17 16:00 98.2 81 18 119/68 93 03/17/17 16:00 96 Nasal Cannula 4.00 03/17/17 14:00 68 03/17/17 12:00 94 Nasal Cannula 4.00 03/17/17 12:00 98.5 68 17 101/58 96 03/17/17 12:00 71 03/17/17 10:00 98 Nasal Cannula 4.00 03/17/17 10:00 75 03/17/17 08:11 94 Nasal Cannula 4.00 03/17/17 08:00 98.7 75 18 138/75 98 03/17/17 06:00 72 03/17/17 04:00 99.1 73 16 124/73 97 03/17/17 04:00 73 03/17/17 04:00 97 Nasal Cannula 4.00 03/17/17 02:00 79 03/17/17 00:00 99.3 72 20 116/65 92 03/17/17 00:00 92 Nasal Cannula 4.00 03/17/17 00:00 72 03/16/17 03/16/17 03/17/17 15:00 23:00 07:00 Intake Total 894 ml 973 ml 643 ml Output Total 2050 ml 1250 ml 350 ml Balance -1156 ml -277 ml 293 ml Intake IV Total 774 ml 917 ml 643 ml Tube Feeding 56 ml Tube Irrigant 120 ml Output Urine Total 2050 ml 1250 ml 350 ml # Bowel Movements 1 0 1 . Laboratory Tests Test 03/16/17 03/17/17 05:08 05:38 White Blood Count 13.1 TH/MM3 9.0 TH/MM3 Red Blood Count 4.32 MIL/MM3 4.42 MIL/MM3 Hemoglobin 13.5 GM/DL 13.8 GM/DL Hematocrit 39.9 % 40.2 % Mean Corpuscular Volume 92.5 FL 90.8 FL Mean Corpuscular Hemoglobin 31.3 PG 31.3 PG Mean Corpuscular Hemoglobin 33.8 % 34.4 % Concent Red Cell Distribution Width 14.1 % 14.1 % Platelet Count 161 TH/MM3 182 TH/MM3 Mean Platelet Volume 8.0 FL 7.7 FL Neutrophils (%) (Auto) 87.0 % 79.5 % Lymphocytes (%) (Auto) 4.5 % 7.3 % Monocytes (%) (Auto) 7.5 % 9.9 % Eosinophils (%) (Auto) 0.8 % 3.1 % Basophils (%) (Auto) 0.2 % 0.2 % Neutrophils # (Auto) 11.4 TH/MM3 7.1 TH/MM3 Lymphocytes # (Auto) 0.6 TH/MM3 0.7 TH/MM3 Monocytes # (Auto) 1.0 TH/MM3 0.9 TH/MM3 Eosinophils # (Auto) 0.1 TH/MM3 0.3 TH/MM3 Basophils # (Auto) 0.0 TH/MM3 0.0 TH/MM3 CBC Comment DIFF FINAL DIFF FINAL Differential Comment Laboratory Tests Test 03/16/17 03/16/17 03/16/17 03/17/17 05:08 08:50 22:33 05:38 Sodium Level 142 MEQ/L 141 MEQ/L 142 MEQ/L Potassium Level 3.1 MEQ/L 3.2 MEQ/L 3.7 MEQ/L Chloride Level 107 MEQ/L 105 MEQ/L 107 MEQ/L Carbon Dioxide Level 25.4 MEQ/L 27.4 MEQ/L 26.7 MEQ/L Anion Gap 10 MEQ/L 9 MEQ/L 8 MEQ/L Blood Urea Nitrogen 14 MG/DL 16 MG/DL 16 MG/DL Creatinine 0.75 MG/DL 0.83 MG/DL 0.76 MG/DL Estimat Glomerular Filtration 105 ML/MIN 94 ML/MIN 104 ML/MIN Rate Random Glucose 95 MG/DL 109 MG/DL 99 MG/DL Calcium Level 7.8 MG/DL 8.1 MG/DL 8.1 MG/DL Phosphorus Level 2.4 MG/DL 2.3 MG/DL Magnesium Level 2.0 MG/DL 2.1 MG/DL Total Bilirubin 1.6 MG/DL Aspartate Amino Transf 37 U/L (AST/SGOT) Alanine Aminotransferase 38 U/L (ALT/SGPT) Alkaline Phosphatase 65 U/L Total Protein 5.6 GM/DL Albumin 2.1 GM/DL Imaging Last Impressions Chest X-Ray 03/15/17 0000 Signed Impressions: Service Date/Time: Wednesday, March 15, 2017 09:03 - CONCLUSION: Increasing consolidation in his right base. Mariano Gabriel MD FACR Head CT 03/11/17 1129 Signed Impressions: Service Date/Time: Saturday, March 11, 2017 12:40 - CONCLUSION: Chronic changes without any significant hemorrhage or mass effect. Jacqueline Preston MD Physical Exam CONSTITUTIONAL/GENERAL: This is an adequately nourished patient, in no apparent distress. TUBES/LINES/DRAINS: SKIN: No jaundice, rashes, or lesions. Skin temperature appropriate. Not diaphoretic. HEAD: Atraumatic. Normocephalic. EYES: Pupils equal and round and reactive. Extraocular motions intact. No scleral icterus. No injection or drainage. Fundi not examined. ENT: Hearing grossly normal. Nose without bleeding or purulent drainage. Throat without visible erythema, exudates, masses, or lesions. NECK: Trachea midline. Supple, nontender. CARDIOVASCULAR: Regular rate and rhythm without murmurs, gallops, or rubs. No JVD. Peripheral pulses symmetric. RESPIRATORY/CHEST: Symmetric, unlabored respirations. Clear to auscultation. Breath sounds equal bilaterally. No wheezes, rales, or rhonchi. GASTROINTESTINAL: Abdomen soft, non-tender, nondistended. No hepato-splenomegaly , or palpable masses. No guarding. Bowel sounds present. GENITOURINARY: Without palpable bladder distension. Encinas catheter in place with clear yellow urine MUSCULOSKELETAL: Extremities without clubbing, cyanosis, or edema. No joint tenderness or effusion noted. No calf tenderness. No mottling or clubbing. LYMPHATICS: No palpable cervical or supraclavicular adenopathy. NEUROLOGICAL: severely lethargic to obtunded; noted to move spontaneously all 4 extremeties not follows commands PSYCHIATRIC: unable to assess Assessment & Plan Remarks Sp cardiac arrest Unstable angina Fever ? infectious vs non ifectious - no fever today procalcitonine in moderate range New RLE consolidation ? PNA vs atelectasis - cont current abx for now -fu temps, WBC - dc vancomycin Kaitlin Noel MD Mar 17, 2017 22:26
[2017-03-18] VITALS (15 sets, daily range): BP systolic 132–150; BP diastolic 68–78; PULSE 63–79; RESP 19–29; TEMP 97.7–98.8; O2SAT 93–99
[2017-03-18] MEDS: LORazepam 2 MG/ML VIAL IV PUSH PRN ×3 (00:25→22:23)
[2017-03-18] MEDS: CHLORHEXIDINE GLUCONATE 2 % 1 PACK (2 CLOTHS) TOP SCH (03:17)
[2017-03-18] MEDS: PIPERACIL-TAZO 4.5 GM PREMIX 100 ML IV SCH ×4 (03:17→21:19)
[2017-03-18] MEDS: RESP: ALBUTEROL 2.5 MG/IPRATROPIUM 0.5 MG NEB (SCH) NEB ×4 (03:42→19:44)
[2017-03-18 04:32] LABS: AUTOMATED NEUTROPHIL # 5.8 TH/MM3 (1.8-7.7); BASOPHIL % 0.4 % (0.0-2.0); EOSINOPHIL # 0.3 TH/MM3 (0-0.4); EOSINOPHIL % 3.7 % (0.0-4.0); HEMATOCRIT 42.8 % (39.0-51.0); HEMO FLAGS DIFF FINAL; LYMPH % 11.2 % (9.0-44.0); LYMPHOCYTE # 0.9 TH/MM3 (1.0-4.8); MEAN CELL VOLUME 92.8 FL (80.0-100.0); MEAN CORPUSCULAR HEMOGLOBIN 30.8 PG (27.0-34.0); MEAN CORPUSCULAR HGB CONC 33.2 % (32.0-36.0); MONO % 14.4 % (0.0-8.0); NEUT % 70.3 % (16.0-70.0); PLATELET COUNT 190 TH/MM3 (150-450); RED BLOOD COUNT 4.62 MIL/MM3 (4.50-5.90); WHITE BLOOD COUNT 8.3 TH/MM3 (4.0-11.0)
[2017-03-18 05:01] LABS: BICARBONATE 30.3 MEQ/L (21.0-32.0); POTASSIUM 3.1 MEQ/L (3.5-5.1)
[2017-03-18] MEDS: POTASSIUM CHLOR 20 MEQ PREMIX 100 ML IV PRN ×4 (06:01→16:28)
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
[2017-03-18] MEDS: DOCUSATE SODIUM 100 MG/10 ML UDC G-TUBE SCH ×2 (09:00→21:19)
[2017-03-18] MEDS: MULTIVITAMIN TAB PO SCH (09:00)
[2017-03-18] MEDS: THIAMINE HCL 100 MG TAB PO SCH (09:00)
[2017-03-18] MEDS: FOLIC ACID 1 MG TAB PO SCH (09:00)
[2017-03-18] MEDS: FAMOTIDINE 20 MG/2 ML VIAL IV PUSH SCH ×2 (09:01→21:20)
[2017-03-18] MEDS: HEPARIN SODIUM - SQ 10,000 UNITS/ML VIAL SQ SCH ×2 (09:01→21:20)
[2017-03-18] MEDS: ARTIFICIAL TEARS OPTH SOLN 15 ML BTL EACH EYE SCH ×3 (09:01→18:40)
[2017-03-18] MEDS: ASPIRIN 81 MG CHEW TAB PO SCH (09:41)
[2017-03-18] MEDS: TICAGRELOR 90 MG TAB PO SCH ×2 (09:41→21:20)
[2017-03-18] MEDS: CARVEDILOL 12.5 MG TAB PO SCH ×2 (09:42→21:20)
[2017-03-18] MEDS: ENALAPRIL MALEATE 5 MG TAB PO SCH ×2 (09:42→21:19)
[2017-03-18] MEDS: FUROSEMIDE 40 MG TAB PO SCH (11:53)
[2017-03-18] MEDS: AZITHROMYCIN INJ 250 MG in SODIUM CHLOR 0.9% 250 ML INJ 250 ML IV SCH (13:48)
[2017-03-18] MEDS: LACTULOSE SYRUP 20 GM/30 ML CUP PO SCH (18:40)
[2017-03-18] MEDS: ATORVASTATIN 40 MG TAB PO SCH (21:19)
[2017-03-19] VITALS (14 sets, daily range): BP systolic 109–136; BP diastolic 65–94; PULSE 62–85; RESP 18–22; TEMP 97.9–99; O2SAT 92–99
[2017-03-19] MEDS: PIPERACIL-TAZO 4.5 GM PREMIX 100 ML IV SCH ×4 (03:17→22:23)
[2017-03-19] MEDS: CHLORHEXIDINE GLUCONATE 2 % 1 PACK (2 CLOTHS) TOP SCH (04:00)
[2017-03-19] MEDS: RESP: ALBUTEROL 2.5 MG/IPRATROPIUM 0.5 MG NEB (SCH) NEB ×4 (04:20→20:31)
[2017-03-19 05:23] LABS: BICARBONATE 29.2 MEQ/L (21.0-32.0)
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
[2017-03-19] MEDS: ENALAPRIL MALEATE 5 MG TAB PO SCH ×2 (08:31→22:24)
[2017-03-19] MEDS: FUROSEMIDE 40 MG TAB PO SCH (08:31)
[2017-03-19] MEDS: TICAGRELOR 90 MG TAB PO SCH ×2 (08:32→22:24)
[2017-03-19] MEDS: CARVEDILOL 12.5 MG TAB PO SCH ×2 (08:32→22:24)
[2017-03-19] MEDS: ASPIRIN 81 MG CHEW TAB PO SCH (08:32)
[2017-03-19] MEDS: LACTULOSE SYRUP 20 GM/30 ML CUP PO SCH ×3 (08:33→17:41)
[2017-03-19] MEDS: FAMOTIDINE 20 MG/2 ML VIAL IV PUSH SCH ×2 (08:33→22:23)
[2017-03-19] MEDS: DOCUSATE SODIUM 100 MG/10 ML UDC G-TUBE SCH ×2 (08:33→22:23)
[2017-03-19] MEDS: HEPARIN SODIUM - SQ 10,000 UNITS/ML VIAL SQ SCH ×2 (08:33→22:23)
[2017-03-19] MEDS: ARTIFICIAL TEARS OPTH SOLN 15 ML BTL EACH EYE SCH ×3 (08:34→17:41)
[2017-03-19] MEDS: MULTIVITAMIN INJ 10 ML, FOLIC ACID INJ 1 MG in SODIUM CHLORID 0.9% 500 ML INJ 500 ML IV SCH (11:04)
[2017-03-19] MEDS: THIAMINE INJ 100 MG in SODIUM CHLORIDE 0.9% INJ 100 ML IV SCH (11:04)
[2017-03-19] MEDS: AZITHROMYCIN INJ 250 MG in SODIUM CHLOR 0.9% 250 ML INJ 250 ML IV SCH (15:26)
[2017-03-19] MEDS: ATORVASTATIN 40 MG TAB PO SCH (22:24)
[2017-03-20] VITALS (13 sets, daily range): BP systolic 107–129; BP diastolic 57–74; PULSE 60–79; RESP 17–22; TEMP 97.8–99.2; O2SAT 92–95
[2017-03-20] MEDS: CHLORHEXIDINE GLUCONATE 2 % 1 PACK (2 CLOTHS) TOP SCH (03:21)
[2017-03-20] MEDS: PIPERACIL-TAZO 4.5 GM PREMIX 100 ML IV SCH ×3 (03:21→16:45)
[2017-03-20] MEDS: RESP: ALBUTEROL 2.5 MG/IPRATROPIUM 0.5 MG NEB (SCH) NEB ×2 (03:48→09:48)
[2017-03-20 07:14] LABS: BICARBONATE 30.2 MEQ/L (21.0-32.0)
[2017-03-20 07:17] LABS: POTASSIUM 2.9 MEQ/L (3.5-5.1)
[2017-03-20] MEDS ORDERED: POTASSIUM CHLORIDE 25 MEQ EFFERVESCENT TAB PO ONE (07:45)
[2017-03-20] MEDS ORDERED: POTASSIUM CHLOR 20 MEQ PREMIX 100 ML IV ONE (07:45)
--- NOTE | 2017-03-20 08:17 | PD.CARD.PN ---
Subjective Subjective Remarks Awake. Alert. Denies CP, dyspnea, dizziness, palpitations, nausea. Slept well. Objective Medications Item Value Date Time Enalapril Maleate 5 mg 03/16/17 1000 (Vasotec) BID/PO 03/19/172223 Carvedilol 12.5 mg 03/16/17 0900 (Coreg) Q12HR/PO 03/19/172223 Furosemide 40 mg 03/16/17 0900 (Lasix) DAILY/PO 03/19/17 0831 Atorvastatin 40 mg 03/15/17 2100 Calcium HS/PO 03/19/17 222 (Lipitor) Heparin Sodium 5,000 units 03/13/17 2100 (Porcine) Q12HR/SQ 03/19/17 222 (Heparin Inj) Aspirin 81 mg 03/12/17 0900 (Aspirin Chew) DAILY/PO 03/19/17 0832 Ticagrelor 90 mg 03/11/17 2100 (Brilinta) BID/PO 03/19/172223 Vital Signs / I&O Vital Signs Date Time Temp Pulse Resp B/P Pulse Ox O2 Delivery O2 Flow Rate FiO2 03/20/17 06:00 60 03/20/17 04:00 68 03/20/17 04:00 93 Nasal Cannula 3.00 03/20/17 04:00 97.8 68 22 125/68 93 03/20/17 02:00 69 03/20/17 00:00 99.1 61 20 113/63 92 03/20/17 00:00 61 03/20/17 00:00 92 Nasal Cannula 3.00 03/19/17 22:00 72 03/19/17 20:32 99 21 03/19/17 20:00 80 03/19/17 20:00 96 Nasal Cannula 3.00 03/19/17 20:00 99.0 80 22 109/65 96 03/19/17 18:00 80 03/19/17 16:00 98.5 72 20 124/71 94 03/19/17 16:00 98 Nasal Cannula 3.00 03/19/17 16:00 71 03/19/17 14:00 82 03/19/17 12:00 98 Nasal Cannula 3.00 03/19/17 12:00 74 03/19/17 12:00 98.3 62 19 113/65 95 03/19/17 10:24 96 4/23/17 10:00 77 I/O 03/19/17 03/19/17 03/19/17 03/20/17 03/20/17 03/20/17 07:00 15:00 23:00 07:00 15:00 23:00 Intake Total 177 ml 1407 ml 50 ml 114 ml Output Total 550 ml 2000 ml 700 ml 500 ml Balance -373 ml -593 ml -650 ml -386 ml IV Total 177 ml 1407 ml 50 ml 114 ml Output Urine Total 550 ml 2000 ml 700 ml 500 ml # Bowel Movements 0 0 1 0 Physical Exam GENERAL: Well developed, well nourished. Intubated. Sedated. HEENT: Jugular venous pressure is normal. CHEST: Lungs clear. CARDIAC: Regular rate and rhythm without S3, S4, or murmur. ABDOMEN: Soft, nontender, no hepatosplenomegaly. Bowel sounds present. EXTREMITIES: No clubbing, cyanosis, or edema. Laboratory Laboratory Tests Test 03/19/17 03/20/17 13:49 05:47 Potassium Level 3.3 MEQ/L 2.9 MEQ/L Sodium Level 140 MEQ/L Chloride Level 101 MEQ/L Carbon Dioxide Level 30.2 MEQ/L Anion Gap 9 MEQ/L Blood Urea Nitrogen 17 MG/DL Creatinine 0.94 MG/DL Estimat Glomerular Filtration 81 ML/MIN Rate Random Glucose 94 MG/DL Calcium Level 8.3 MG/DL Assessment and Plan Problem List: (1) CAD (coronary artery disease) Assessment and Plan: Overall stable s/p VF arrest, stent proximal LAD, PTCA diagonal 03/11/17. Continue Brilinta and aspirin. Cont beta sky, SILVINA-I. EF reportedly 15-20% by echo. Rec continue same, will order LifeVest external defibrillator (2) VF (ventricular fibrillation) Assessment and Plan: Stable overnight. Continue beta sky. Rec Life Vest external defibrillator for 90 days. (3) Ischemic cardiomyopathy Assessment and Plan: Increasing right base consolidation on CXR. Rec continue beta sky, SILVINA-I, furosemide. Negative fluid balance past few days. Consider recheck CXR. (4) Hyperlipidemia Assessment and Plan: Continue statin therapy, f/u lipid profile in a few weeks. Code Status full code Discussed Condition With patient, at length Problem Qualifiers (1) CAD (coronary artery disease): Qualified Code: I25.110 - Coronary artery disease involving standing rock coronary artery of standing rock heart with unstable angina pectoris (2) Hyperlipidemia: Qualified Code: E78.2 - Mixed hyperlipidemia Farshad Esquivel MD Mar 20, 2017 08:17
[2017-03-20] MEDS: TICAGRELOR 90 MG TAB PO SCH ×2 (09:00→20:13)
[2017-03-20] MEDS: ASPIRIN 81 MG CHEW TAB PO SCH (09:00)
[2017-03-20] MEDS: CARVEDILOL 12.5 MG TAB PO SCH ×2 (09:34→20:13)
[2017-03-20] MEDS: ENALAPRIL MALEATE 5 MG TAB PO SCH ×2 (09:34→20:13)
[2017-03-20] MEDS: FUROSEMIDE 40 MG TAB PO SCH (09:34)
[2017-03-20] MEDS: HEPARIN SODIUM - SQ 10,000 UNITS/ML VIAL SQ SCH ×2 (09:36→20:13)
[2017-03-20] MEDS: FAMOTIDINE 20 MG/2 ML VIAL IV PUSH SCH ×2 (09:36→20:12)
[2017-03-20] MEDS: ARTIFICIAL TEARS OPTH SOLN 15 ML BTL EACH EYE SCH ×2 (09:36→16:46)
[2017-03-20] MEDS: DOCUSATE SODIUM 100 MG/10 ML UDC G-TUBE SCH ×2 (09:36→20:13)
[2017-03-20] MEDS: LACTULOSE SYRUP 20 GM/30 ML CUP PO SCH ×2 (09:37→16:46)
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
[2017-03-20] MEDS: MULTIVITAMIN INJ 10 ML, FOLIC ACID INJ 1 MG in SODIUM CHLORID 0.9% 500 ML INJ 500 ML IV SCH (11:53)
[2017-03-20] MEDS: THIAMINE INJ 100 MG in SODIUM CHLORIDE 0.9% INJ 100 ML IV SCH (11:53)
[2017-03-20] MEDS: AZITHROMYCIN INJ 250 MG in SODIUM CHLOR 0.9% 250 ML INJ 250 ML IV SCH (16:45)
--- NOTE | 2017-03-20 18:08 | HHI.IDPN ---
Subjective Subjective Remarks fully awake , alert no co On nasal canulla afebrile all clx remain negative Antibiotics mike saez Allergies: Coded Allergies: No Known Allergies (Verified , 03/11/17) Objective . Vital Signs Date Time Temp Pulse Resp B/P Pulse Ox O2 Delivery O2 Flow Rate FiO2 03/20/17 16:00 99.2 61 17 107/57 95 03/20/17 16:00 71 03/20/17 16:00 95 Nasal Cannula 2.00 03/20/17 14:00 68 03/20/17 12:00 91 Nasal Cannula 3.00 03/20/17 12:00 75 03/20/17 10:00 77 03/20/17 09:49 93 Nasal Cannula 1.00 03/20/17 08:00 71 03/20/17 08:00 95 Nasal Cannula 3.00 03/20/17 06:00 60 03/20/17 04:00 68 03/20/17 04:00 93 Nasal Cannula 3.00 03/20/17 04:00 97.8 68 22 125/68 93 03/20/17 02:00 69 03/20/17 00:00 99.1 61 20 113/63 92 03/20/17 00:00 61 03/20/17 00:00 92 Nasal Cannula 3.00 03/19/17 22:00 72 03/19/17 20:32 99 21 03/19/17 20:00 80 03/19/17 20:00 96 Nasal Cannula 3.00 03/19/17 20:00 99.0 80 22 109/65 96 03/19/17 18:00 80 03/19/17 03/19/17 03/20/17 15:00 23:00 07:00 Intake Total 1407 ml 50 ml 114 ml Output Total 2000 ml 700 ml 500 ml Balance -593 ml -650 ml -386 ml IV Total 1407 ml 50 ml 114 ml Output Urine Total 2000 ml 700 ml 500 ml # Bowel Movements 0 1 0 . Laboratory Tests Test 03/18/17 03/18/17 03/19/17 03/19/17 19:33 22:40 03:35 13:49 Ammonia 22 MCMOL/L Potassium Level 3.3 MEQ/L 3.0 MEQ/L 3.3 MEQ/L Sodium Level 140 MEQ/L Chloride Level 99 MEQ/L Carbon Dioxide Level 29.2 MEQ/L Anion Gap 12 MEQ/L Blood Urea Nitrogen 17 MG/DL Creatinine 0.85 MG/DL Estimat Glomerular Filtration 91 ML/MIN Rate Random Glucose 80 MG/DL Calcium Level 8.9 MG/DL Phosphorus Level 3.0 MG/DL Test 03/20/17 05:47 Sodium Level 140 MEQ/L Potassium Level 2.9 MEQ/L Chloride Level 101 MEQ/L Carbon Dioxide Level 30.2 MEQ/L Anion Gap 9 MEQ/L Blood Urea Nitrogen 17 MG/DL Creatinine 0.94 MG/DL Estimat Glomerular Filtration 81 ML/MIN Rate Random Glucose 94 MG/DL Calcium Level 8.3 MG/DL Imaging Last Impressions Chest X-Ray 03/15/17 0000 Signed Impressions: Service Date/Time: Wednesday, March 15, 2017 09:03 - CONCLUSION: Increasing consolidation in his right base. Mariano Gabriel MD FACR Head CT 03/11/17 1129 Signed Impressions: Service Date/Time: Saturday, March 11, 2017 12:40 - CONCLUSION: Chronic changes without any significant hemorrhage or mass effect. Jacqueline Preston MD Physical Exam CONSTITUTIONAL/GENERAL: This is an adequately nourished patient, in no apparent distress. TUBES/LINES/DRAINS: SKIN: No jaundice, rashes, or lesions. Skin temperature appropriate. Not diaphoretic. HEAD: Atraumatic. Normocephalic. EYES: Pupils equal and round and reactive. Extraocular motions intact. No scleral icterus. No injection or drainage. Fundi not examined. ENT: oral mucosae without visible erythema, exudates, masses, or lesions. CARDIOVASCULAR: Regular rate and rhythm without murmurs, gallops, or rubs. No JVD. Peripheral pulses symmetric. RESPIRATORY/CHEST: Symmetric, unlabored respirations. Clear to auscultation. Breath sounds equal bilaterally. No wheezes, rales, or rhonchi. GASTROINTESTINAL: Abdomen soft, non-tender, nondistended. No hepato-splenomegaly , or palpable masses. No guarding. Bowel sounds present. GENITOURINARY: Without palpable bladder distension. MUSCULOSKELETAL: Extremities without clubbing, cyanosis, or edema. LYMPHATICS: No palpable cervical or supraclavicular adenopathy. NEUROLOGICAL: fully awake and alert, follows commands, normal speech PSYCHIATRIC: calm and cooperative Assessment & Plan Remarks Sp cardiac arrest Unstable angina Fever ? infectious vs non ifectious - no fever today procalcitonine in moderate range New RLE consolidation ? PNA vs atelectasis - complete abx today -fu temps, WBC will s/o please reconsult if any further questions Kaitlin Mauro RN, MD Mar 20, 2017 18:08
[2017-03-20] MEDS: ATORVASTATIN 40 MG TAB PO SCH (20:13)
[2017-03-20] MEDS ORDERED: ACETAMINOPHEN/HYDROcodone 325 MG/5 MG TAB PO ONE (23:45)
[2017-03-21] VITALS (13 sets, daily range): BP systolic 101–126; BP diastolic 55–63; PULSE 58–78; RESP 14–27; TEMP 97.8–99.2; O2SAT 92–98
[2017-03-21] MEDS: CHLORHEXIDINE GLUCONATE 2 % 1 PACK (2 CLOTHS) TOP SCH (04:00)
[2017-03-21] MEDS ORDERED: diphenhydrAMINE HCL 25 MG CAP PO ONE (06:30)
--- NOTE | 2017-03-21 08:20 | PD.CARD.PN ---
Subjective Subjective Remarks Denies CP, dizziness, nausea, palpitations. Slight dyspnea at rest. No PND. Objective Medications Item Value Date Time Carvedilol 25 mg 03/20/17 0900 (Coreg) Q12HR/PO 03/20/172012 Enalapril Maleate 5 mg 03/16/17 1000 (Vasotec) BID/PO 03/20/172012 Furosemide 40 mg 03/16/17 0900 (Lasix) DAILY/PO 03/20/17 0934 Atorvastatin 40 mg 03/15/17 2100 Calcium HS/PO 03/20/172012 (Lipitor) Heparin Sodium 5,000 units 03/13/17 2100 (Porcine) Q12HR/SQ 03/20/172012 (Heparin Inj) Aspirin 81 mg 03/12/17 0900 (Aspirin Chew) DAILY/PO 03/20/17 0900 Ticagrelor 90 mg 03/11/17 2100 (Brilinta) BID/PO 03/20/172012 Vital Signs / I&O Vital Signs Date Time Temp Pulse Resp B/P Pulse Ox O2 Delivery O2 Flow Rate FiO2 03/21/17 06:00 67 03/21/17 04:00 65 03/21/17 04:00 99.2 65 27 114/56 98 03/21/17 04:00 98 Nasal Cannula 2.00 03/21/17 02:00 65 03/21/17 00:00 95 Nasal Cannula 2.00 03/21/17 00:00 58 03/21/17 00:00 99.1 58 20 117/63 93 03/20/17 22:00 66 03/20/17 20:19 Nasal Cannula 1.00 03/20/17 20:00 92 Nasal Cannula 2.00 03/20/17 20:00 99.2 69 22 126/61 92 03/20/17 20:00 69 03/20/17 18:00 78 03/20/17 16:00 99.2 61 17 107/57 95 03/20/17 16:00 71 03/20/17 16:00 95 Nasal Cannula 2.00 03/20/17 14:00 68 03/20/17 12:00 91 Nasal Cannula 3.00 03/20/17 12:00 75 03/20/17 12:00 98.6 74 20 119/74 93 03/20/17 10:00 77 03/20/17 09:49 93 Nasal Cannula 1.00 I/O 03/20/17 03/20/17 03/20/17 03/21/17 03/21/17 03/21/17 07:00 15:00 23:00 07:00 15:00 23:00 Intake Total 114 ml 1310 ml 723 ml 377 ml Output Total 500 ml 801 ml 450 ml 0 ml Balance -386 ml 509 ml 273 ml 377 ml Intake Oral 500 ml 350 ml 350 ml IV Total 114 ml 810 ml 373 ml 27 ml Output Urine Total 500 ml 800 ml 450 ml 0 ml Stool Total 1 ml # Bowel Movements 0 0 0 Physical Exam GENERAL: Well developed, well nourished. Intubated. Sedated. HEENT: Jugular venous pressure is normal. CHEST: Decreased breath sounds bases. CARDIAC: Regular rate and rhythm without S3, S4, or murmur. ABDOMEN: Soft, nontender, no hepatosplenomegaly. Bowel sounds present. EXTREMITIES: No clubbing, cyanosis, or edema. Laboratory Laboratory Tests Test 03/21/17 04:02 Magnesium Level 2.1 MG/DL Assessment and Plan Problem List: (1) CAD (coronary artery disease) Assessment and Plan: Overall stable s/p VF arrest, stent proximal LAD, PTCA diagonal 03/11/17. Continue Brilinta and aspirin. Cont beta sky, SILVINA-I. EF reportedly 15-20% by echo. Cardiac status, events of past 10 days discussed at length with patient. Rec continue same, OK to discharge from a cardiac standpoint once he has Life Vest external defibrillator, 2-3 week f/u with Dr. Weiner (2) VF (ventricular fibrillation) Assessment and Plan: Stable overnight. Continue beta sky. Rec Life Vest external defibrillator for 90 days. (3) Ischemic cardiomyopathy Assessment and Plan: Overall stable. Compensated. Rec continue beta sky, SILVINA-I, furosemide. (4) Hyperlipidemia Assessment and Plan: Continue statin therapy, f/u lipid profile in a few weeks. Code Status full code Discussed Condition With patient Problem Qualifiers (1) CAD (coronary artery disease): Qualified Code: I25.110 - Coronary artery disease involving [place] coronary artery of [place] heart with unstable angina pectoris (2) Hyperlipidemia: Qualified Code: E78.2 - Mixed hyperlipidemia Farshad Esquivel MD Mar 21, 2017 08:20
[2017-03-21] MEDS: FUROSEMIDE 40 MG TAB PO SCH (09:39)
[2017-03-21] MEDS: ENALAPRIL MALEATE 5 MG TAB PO SCH ×2 (09:39→20:16)
[2017-03-21] MEDS: DOCUSATE SODIUM 100 MG/10 ML UDC G-TUBE SCH ×2 (09:39→20:15)
[2017-03-21] MEDS: HEPARIN SODIUM - SQ 10,000 UNITS/ML VIAL SQ SCH ×2 (09:39→20:15)
[2017-03-21] MEDS: CARVEDILOL 12.5 MG TAB PO SCH ×2 (09:39→20:16)
[2017-03-21] MEDS: LACTULOSE SYRUP 20 GM/30 ML CUP PO SCH ×3 (09:39→18:00)
[2017-03-21] MEDS: THIAMINE INJ 100 MG in SODIUM CHLORIDE 0.9% INJ 100 ML IV SCH (09:40)
[2017-03-21] MEDS: TICAGRELOR 90 MG TAB PO SCH ×2 (09:40→20:16)
[2017-03-21] MEDS: ASPIRIN 81 MG CHEW TAB PO SCH (09:40)
[2017-03-21] MEDS: MULTIVITAMIN INJ 10 ML, FOLIC ACID INJ 1 MG in SODIUM CHLORID 0.9% 500 ML INJ 500 ML IV SCH (09:40)
[2017-03-21] MEDS: FAMOTIDINE 20 MG/2 ML VIAL IV PUSH SCH ×2 (09:40→20:15)
[2017-03-21] MEDS: ARTIFICIAL TEARS OPTH SOLN 15 ML BTL EACH EYE SCH ×3 (09:41→18:00)
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
[2017-03-21] MEDS: ATORVASTATIN 40 MG TAB PO SCH (20:16)
[2017-03-22] VITALS (18 sets, daily range): BP systolic 94–114; BP diastolic 53–71; PULSE 57–71; RESP 0–24; TEMP 98–98.9; O2SAT 92–97
[2017-03-22] MEDS: CHLORHEXIDINE GLUCONATE 2 % 1 PACK (2 CLOTHS) TOP SCH ×2 (04:00→20:56)
[2017-03-22] MEDS: ENALAPRIL MALEATE 5 MG TAB PO SCH ×2 (08:54→20:55)
[2017-03-22] MEDS: ASPIRIN 81 MG CHEW TAB PO SCH (08:54)
[2017-03-22] MEDS: TICAGRELOR 90 MG TAB PO SCH ×2 (08:54→20:55)
[2017-03-22] MEDS: FUROSEMIDE 40 MG TAB PO SCH (08:54)
[2017-03-22] MEDS: MULTIVITAMIN INJ 10 ML, FOLIC ACID INJ 1 MG in SODIUM CHLORID 0.9% 500 ML INJ 500 ML IV SCH (08:55)
[2017-03-22] MEDS: FAMOTIDINE 20 MG/2 ML VIAL IV PUSH SCH ×2 (08:55→20:55)
[2017-03-22] MEDS: DOCUSATE SODIUM 100 MG/10 ML UDC G-TUBE SCH ×2 (08:55→20:52)
[2017-03-22] MEDS: HEPARIN SODIUM - SQ 10,000 UNITS/ML VIAL SQ SCH ×2 (08:55→20:55)
[2017-03-22] MEDS: CARVEDILOL 12.5 MG TAB PO SCH ×2 (08:55→20:55)
[2017-03-22] MEDS: LACTULOSE SYRUP 20 GM/30 ML CUP PO SCH ×3 (08:55→18:00)
[2017-03-22] MEDS: ARTIFICIAL TEARS OPTH SOLN 15 ML BTL EACH EYE SCH ×3 (08:56→18:00)
[2017-03-22] MEDS ORDERED: diphenhydrAMINE HCL 2%/ZINC ACETATE 0.1% CREAM 30 APPLIC/30 GM TUBE TOPICAL PRN (10:30)
[2017-03-22 11:38] LABS: BICARBONATE 29.9 MEQ/L (21.0-32.0); POTASSIUM 3.5 MEQ/L (3.5-5.1)
[2017-03-22] MEDS ORDERED: FURO40TA PO (17:11)
[2017-03-22] MEDS ORDERED: CARV12.5 PO (17:11)
[2017-03-22] MEDS ORDERED: LACT10SO PO (17:11)
[2017-03-22] MEDS ORDERED: ATOR40TA16 PO (17:11)
[2017-03-22] MEDS ORDERED: ENAL5TAB PO (17:11)
[2017-03-22] MEDS ORDERED: BRIL90TA PO (17:11)
[2017-03-22] MEDS ORDERED: Aspirin Chew PO (17:11)
[2017-03-22] MEDS ORDERED: POTA10CA PO (17:16)
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
[2017-03-22] MEDS: ATORVASTATIN 40 MG TAB PO SCH (20:54)
[2017-03-23] VITALS (9 sets, daily range): BP systolic 102–126; BP diastolic 53–63; PULSE 57–72; RESP 15–29; TEMP 98.3; O2SAT 90–95
[2017-03-23] MEDS: DOCUSATE SODIUM 100 MG/10 ML UDC G-TUBE SCH (07:59)
[2017-03-23] MEDS: FUROSEMIDE 40 MG TAB PO SCH (08:00)
[2017-03-23] MEDS: HEPARIN SODIUM - SQ 10,000 UNITS/ML VIAL SQ SCH (08:00)
[2017-03-23] MEDS: ASPIRIN 81 MG CHEW TAB PO SCH (08:00)
[2017-03-23] MEDS: FAMOTIDINE 20 MG/2 ML VIAL IV PUSH SCH (08:00)
[2017-03-23] MEDS: TICAGRELOR 90 MG TAB PO SCH (08:00)
[2017-03-23] MEDS: CARVEDILOL 12.5 MG TAB PO SCH (08:00)
[2017-03-23] MEDS: ENALAPRIL MALEATE 5 MG TAB PO SCH (08:00)
[2017-03-23] MEDS: ARTIFICIAL TEARS OPTH SOLN 15 ML BTL EACH EYE SCH (08:01)
[2017-03-23] MEDS: LACTULOSE SYRUP 20 GM/30 ML CUP PO SCH (08:01)
[2017-03-23] MEDS: MULTIVITAMIN INJ 10 ML, FOLIC ACID INJ 1 MG in SODIUM CHLORID 0.9% 500 ML INJ 500 ML IV SCH (10:00)
== END 2017-03-23 12:48 | DRG 246 ==
LOC: NEPE 10:55 → NEDA 11:42 → HIME 13:00 → HIMW 03-17 17:15
PROVIDERS: ADMIT Anesthesiology; ATTEND Hospitalist
PROC: 027034Z Dilation of Coronary Artery, One Artery with Drug-eluting Intraluminal Device, Percutaneous Approach (ICD-10-PCS; principal; 2017-03-11)
PROC: 02703ZZ Dilation of Coronary Artery, One Artery, Percutaneous Approach (ICD-10-PCS; 2017-03-11)
PROC: 4A023N7 Measurement of Cardiac Sampling and Pressure, Left Heart, Percutaneous Approach (ICD-10-PCS; 2017-03-11)
PROC: B2111ZZ Fluoroscopy of Multiple Coronary Arteries using Low Osmolar Contrast (ICD-10-PCS; 2017-03-11)
PROC: 6A4Z1ZZ Hypothermia, Multiple (ICD-10-PCS; 2017-03-11)
PROC: 06HM33Z Insertion of Infusion Device into Right Femoral Vein, Percutaneous Approach (ICD-10-PCS; 2017-03-11)
PROC: 0BH17EZ Insertion of Endotracheal Airway into Trachea, Via Natural or Artificial Opening (ICD-10-PCS; 2017-03-11)
PROC: 5A1945Z Respiratory Ventilation, 24-96 Consecutive Hours (ICD-10-PCS; 2017-03-11)
PROC: 02HV33Z Insertion of Infusion Device into Superior Vena Cava, Percutaneous Approach (ICD-10-PCS; 2017-03-11)
PROC: 03HY32Z Insertion of Monitoring Device into Upper Artery, Percutaneous Approach (ICD-10-PCS; 2017-03-11)
DX: I25.110 Atherosclerotic heart disease of native coronary artery with unstable angina pectoris (principal); R57.0 Cardiogenic shock; I49.01 Ventricular fibrillation; J69.0 Pneumonitis due to inhalation of food and vomit; I46.2 Cardiac arrest due to underlying cardiac condition; I50.9 Heart failure, unspecified; I25.5 Ischemic cardiomyopathy; I11.0 Hypertensive heart disease with heart failure; F17.210 Nicotine dependence, cigarettes, uncomplicated; I48.91 Unspecified atrial fibrillation; B96.89 Other specified bacterial agents as the cause of diseases classified elsewhere; R09.02 Hypoxemia; I45.9 Conduction disorder, unspecified; E78.2 Mixed hyperlipidemia; R82.71 Bacteriuria; R45.1 Restlessness and agitation; Z86.73 Personal history of transient ischemic attack (TIA), and cerebral infarction without residual deficits; Z86.718 Personal history of other venous thrombosis and embolism
CPT/HCPCS: 31500; 36600; 51702; 70450; 71010; 76937; 80048; 80053; 80061; 80076; 80307; 81001; 82140; 82550; 82552; 82805; 82948; 83605; 83735; 84100; 84132; 84145; 84155; 84484; 85002; 85025; 85610; 85730; 86850; 86900; 86901; 87040; 87070; 87086; 87205; 87641; 92941; 93005; 93306; 93458; 94002; 94003; 94640; C1725; C1769; C1874; C1887; C1893; J0171; J0330; J0360; J0456; J0692; J1644; J1940; J2060; J2250; J2543; J3010; J3246; J3370; J3411; J3480; J7030; J7040; J7050; J7060